=== PATIENT | male | born 1970 | race Caucasian/White ===

== ENCOUNTER 2021-05-27 20:22 | Inpatient (IN) | payer MEDICARE, MEDICAID, SELFPAY ==
--- NOTE | ~2021-05-27 | XR_ITS ---
EXAMINATION: XR CHEST CLINICAL INFORMATION: COPD COMPARISON: None TECHNIQUE: Frontal view of the chest was obtained. FINDINGS: Low lung volumes. Minimal opacities may well be chronic. No large area of infiltrate. The mediastinal contours are felt to be within normal limits. There is no effusion. No obvious failure. Mild cephalization of the vasculature. XR/XR chest 1V IMPRESSION: No acute finding. Low lung volumes. Mild cephalization of the vasculature may represent patient's baseline. No failure or convincing evidence for an acute infiltrate
--- NOTE | ~2021-05-27 | CT_ITS ---
EXAMINATION: CT HEAD WITHOUT CONTRAST CLINICAL INFORMATION: Altered mental status COMPARISON: None TECHNIQUE: Contiguous axial imaging was performed from the skull base to vertex without intravenous administration of contrast. This CT examination was performed using dose optimization techniques as appropriate, variously including the following: *Automated exposure control *Adjustment of mA and/or kV according to patient size (this includes techniques or standardized protocols for targeted exams where dose is matched to indication/reason for exam; i.e. extremities or head) *Use of iterative reconstruction technique DLP: 817 mGy-cm FINDINGS: Assessment is suboptimal in some regions due to motion artifact. There is no evidence of acute intracranial hemorrhage or territorial infarction. No abnormal mass effect or midline shift is seen. [place] to white matter differentiation is well preserved. No extra-axial fluid collections are identified. The ventricles are normal in size. There is no abnormal attenuation within the brain parenchyma. The osseous structures and soft tissues are normal. The mastoid air cells and visualized portions of the paranasal sinuses are well aerated. CT/CT head/brain wo con IMPRESSION: No acute intracranial pathology identified.
--- NOTE | ~2021-05-27 | CT_ITS ---
EXAMINATION: CT ANGIOGRAM OF THE CHEST WITH AND WITHOUT CONTRAST (CT PULMONARY ANGIOGRAM FOR PE) CLINICAL INFORMATION: Tachycardic, hypoxic. COMPARISON: None TECHNIQUE: Prior to contrast administration, noncontrast localization images were obtained. Subsequently, multidetector volumetric imaging was performed from the thoracic inlet to below the diaphragms following the administration of 80 mL Omnipaque 350 intravenous contrast. No contrast reaction reported. Sagittal, coronal, and MIP oblique sagittal reformatted images were obtained on the CT workstation, uploaded to PACS, and reviewed. This CT examination was performed using dose optimization techniques as appropriate, variously including the following: *Automated exposure control *Adjustment of mA and/or kV according to patient size (this includes techniques or standardized protocols for targeted exams where dose is matched to indication/reason for exam; i.e. extremities or head) *Use of iterative reconstruction technique Total exam dose-length product 418 mGy-cm FINDINGS: QUALITY OF STUDY/CONTRAST BOLUS: Satisfactory. PULMONARY ARTERIES: No central or segmental pulmonary emboli. THORACIC AORTA: No aneurysm or dissection. LUNG: There is centrilobular emphysematous changes with dependent bilateral upper lobe posterior segment atelectasis. There is bilateral lower lobe dependent atelectasis and/or infiltrates. PLEURA: Bilateral posterior pleural thickening and/or effusion is noted. MEDIASTINUM: The thyroid lobes are symmetrical and normal. The central trachea and the bronchi are widely patent. Heart size and the great vessels are normal caliber. No abnormal sized mediastinal or hilar lymph nodes seen. There is no pericardial effusion. No evidence of septal bowing or right heart strain. CHEST WALL/AXILLA: There are small shotty axillary lymph nodes seen. OSSEOUS STRUCTURES: No acute or suspicious osseous abnormality. UPPER ABDOMEN: Unremarkable. No reflux of contrast into the hepatic veins to suggest elevated right heart pressures. CT/CT angio chest PE protocol IMPRESSION: No evidence of PE. No evidence aortic dissection or aneurysm. There is bibasilar dependent atelectasis and/or infiltrate. There is dependent bilateral upper lobe posterior segment atelectasis. VTE: negative
[2021-05-27 20:26] VITALS: BP 116/70; PULSE 110; O2SAT 81
[2021-05-27 20:31] VITALS: BP 127/79; PULSE 98; RESP 24; TEMP 37.2; O2SAT 93; BMI 29.8
--- NOTE | 2021-05-27 21:11 | ECG_ITS ---
Test Reason : sob Blood Pressure : / mmHG Vent. Rate : 091 BPM Atrial Rate : 091 BPM P-R Int : 144 ms QRS Dur : 080 ms QT Int : 358 ms P-R-T Axes : 074 079 058 degrees QTc Int : 440 ms Normal sinus rhythm Normal ECG No previous ECGs available Referred By: Elizabeth Hull Electronically Signed By:BOBBY SEGURA MD
--- NOTE | 2021-05-27 21:15 | ED.AMS ---
HPI - Altered Mental Status General Chief Complaint: Altered Mental Status Stated Complaint: sob Time Seen by Provider: 05/27/21 20:55 Source: EMS Mode of arrival: EMS Limitations: altered mental status History of Present Illness HPI narrative: Patient is brought to emergency room by EMS. Patient is coming from [facility]. Seems that the patient was seen earlier today at [facility]. Seems that patient had been there from 14:00 and was there for several hours, according to report from EMS, the patient is oxygen dependent for COPD and per report it seems that patient was not on oxygen from the time he was picked up from the rehab until he was returned back. Also, seems that the patient received 2 mg Ativan prior to transport from [facility] to the rehab facility. Also, seems that the patient received Narcan approximately at 16:00. Patient is very somnolent and unable to give any history. Related Data Allergies Allergy/AdvReac Type Severity Reaction Status Date / Time No Known Allergies Allergy Verified 05/27/21 21:11 Review of Systems Review of Systems: e Yes Unobtainable due to mental status [facility] Past Medical History [facility] Narrative: At this time, unable to get any history from the patient due to mental status. Medical records have been requested, pending. Social History Social History Advance Directives: No Advance Directives Information Provided: Yes Physical Exam Vital Signs: Vital Signs: Last Vital Signs Temp 98.9 F 05/27/21 20:31 Pulse 107 H 05/28/21 00:59 Resp 20 05/28/21 00:59 BP 114/59 L 05/28/21 00:59 Pulse Ox 92 05/28/21 00:59 Oxygen Flow Rate 4 05/27/21 20:31 Body Mass Index 29.8 Const: Other: Appearance: Somnolent, wakes up to needle sticks as were obtaining labs Eyes: Pupils equal, pinpoint pupils bilaterally ENT: Pharynx normal. Neck: Normal inspection. Neck supple. No lymph nodes noted. No crepitus CVS: Normal heart rate and rhythm. Pulses normal. Normal S1 and S2 Respiratory: No respiratory distress. Patient's oxygen saturation dropped to 87-88% even on 4 L of oxygen. Lungs have decreased air movement, wheezing. Abdomen: Soft no rigidity, no distention Skin: Skin warm and dry. Extremities: No lower extremity edema. No Lacerations. No Rash Neuro: Very somnolent Course Course Course Narrative: Patient remains somnolent but does wake up. Without oxygen patient desaturates to the mid 80s. Patient's nurse tried calling the [place] [facility] came from. They do not know if the patient is oxygen dependent. When we asked patient, he keeps changing his answers. In the meantime, seems that patient was seen earlier today for COPD exacerbation at [place], patient was given azithromycin. We will go ahead and treat for COPD exacerbation, patient remains on 4 L of oxygen saturating 93%. Patient will be admitted. Sepsis not suspected. MDM - Altered Mental Status Lab Data Result diagrams: 05/27/21 21:28 05/27/21 21:28 Labs: Lab Results 05/27/21 05/27/21 05/27/21 Range/Units 21:24 21:28 21:28 WBC 11.2 H (4.8-10.8) X10*3/uL RBC 4.93 (4.60-5.80) X10*6/uL Hgb 15.6 (14.0-18.0) g/dl Hct 46.4 (42.0-52.0) % MCV 94.1 (80.0-98.0) fL MCH 31.6 (27.0-33.0) pg MCHC 33.6 (31.0-36.0) g/dl RDW 13.1 (11.0-16.0) % Plt Count 422 H (160-400) X10*3/uL MPV 8.3 L (9.4-12.4) fL Immature Gran % (Auto) 0.3 (0.0-0.4) % Neut % (Auto) 63.2 (45-73) % Lymph % (Auto) 25.1 (20-40) % Phillips % (Auto) 8.5 (2-11) % Eos % (Auto) 2.5 (0-4) % Baso % (Auto) 0.4 (0-2) % Lymph # (Auto) 2.8 (1.2-4.9) X10*3/uL Phillips # (Auto) 1.0 (0.1-1.2) X10*3/uL Eos # (Auto) 0.3 (0.0-0.4) X10*3/uL Baso # (Auto) 0.0 (0.0-0.2) X10*3/uL Abs Immat Gran (auto) 0.03 (0.00-0.03) X10*3/uL Absolute Neuts (auto) 7.1 (2.0-8.3) x10*3/uL Absolute Nucleated RBC 0.000 (0.0-0.012) X10*3/uL Nucleated RBC % (auto) 0.0 (0.0-0.2) /100WBC PT (9.9-13.0) SEC INR (0.9-1.1) VBG pH 7.35 (7.32-7.43) VBG pCO2 52 mmHg VBG pO2 101 mmHg VBG HCO3 29 H (22-26) mmol/L VBG O2 Saturation 99.0 % VBG Base Excess 3.1 mmol/L Sodium 140 (135-145) mmol/L Potassium 4.3 (3.3-5.1) mmol/L Chloride 104 (96-108) mmol/L Carbon Dioxide 29 (22-29) mmol/L Anion Gap 11 L (12-20) BUN 8 L (9-16) mg/dL Creatinine 0.73 (0.5-1.4) mg/dL Estim Creat Clear Calc 146.4 Estimated GFR > 60 Random Glucose 136 H (60-115) mg/dL Lactic Acid (0.5-2.0) mmol/L Calcium 9.3 (8.4-10.2) mg/dL Magnesium 2.1 (1.6-2.6) mg/dL Total Bilirubin 0.3 (0.0-1.0) mg/dL Direct Bilirubin 0.2 (0.0-0.5) mg/dL AST 9 (5-37) U/L ALT 13 (0-40) U/L Alkaline Phosphatase 72 (39-117) U/L Ammonia (13-55) umol/L Troponin I High Sens (<3.5-35.0) ng/L B-Natriuretic Peptide (<100) pg/mL Total Protein 6.6 (6.5-8.0) g/dL Albumin 4.1 (3.5-5.0) g/dL COVID-19 ([facility]) (Negative) COVID-19 Clin Com 11/17/21 11/17/21 11/17/21 Range/Units 21:28 21:28 21:28 WBC (4.8-10.8) X10*3/uL RBC (4.60-5.80) X10*6/uL Hgb (14.0-18.0) g/dl Hct (42.0-52.0) % MCV (80.0-98.0) fL MCH (27.0-33.0) pg MCHC (31.0-36.0) g/dl RDW (11.0-16.0) % Plt Count (160-400) X10*3/uL MPV (9.4-12.4) fL Immature Gran % (Auto) (0.0-0.4) % Neut % (Auto) (45-73) % Lymph % (Auto) (20-40) % Phillips % (Auto) (2-11) % Eos % (Auto) (0-4) % Baso % (Auto) (0-2) % Lymph # (Auto) (1.2-4.9) X10*3/uL Phillips # (Auto) (0.1-1.2) X10*3/uL Eos # (Auto) (0.0-0.4) X10*3/uL Baso # (Auto) (0.0-0.2) X10*3/uL Abs Immat Gran (auto) (0.00-0.03) X10*3/uL Absolute Neuts (auto) (2.0-8.3) x10*3/uL Absolute Nucleated RBC (0.0-0.012) X10*3/uL Nucleated RBC % (auto) (0.0-0.2) /100WBC PT 12.0 (9.9-13.0) SEC INR 1.1 (0.9-1.1) VBG pH (7.32-7.43) VBG pCO2 mmHg VBG pO2 mmHg VBG HCO3 (22-26) mmol/L VBG O2 Saturation % VBG Base Excess mmol/L Sodium (135-145) mmol/L Potassium (3.3-5.1) mmol/L Chloride (96-108) mmol/L Carbon Dioxide (22-29) mmol/L Anion Gap (12-20) BUN (9-16) mg/dL Creatinine (0.5-1.4) mg/dL Estim Creat Clear Calc Estimated GFR Random Glucose (60-115) mg/dL Lactic Acid 0.8 (0.5-2.0) mmol/L Calcium (8.4-10.2) mg/dL Magnesium (1.6-2.6) mg/dL Total Bilirubin (0.0-1.0) mg/dL Direct Bilirubin (0.0-0.5) mg/dL AST (5-37) U/L ALT (0-40) U/L Alkaline Phosphatase (39-117) U/L Ammonia 70 H (13-55) umol/L Troponin I High Sens (<3.5-35.0) ng/L B-Natriuretic Peptide (<100) pg/mL Total Protein (6.5-8.0) g/dL Albumin (3.5-5.0) g/dL COVID-19 ([facility]) (Negative) COVID-19 Clin Com 05/27/21 05/27/21 Range/Units 21:28 21:28 WBC (4.8-10.8) X10*3/uL RBC (4.60-5.80) X10*6/uL Hgb (14.0-18.0) g/dl Hct (42.0-52.0) % MCV (80.0-98.0) fL MCH (27.0-33.0) pg MCHC (31.0-36.0) g/dl RDW (11.0-16.0) % Plt Count (160-400) X10*3/uL MPV (9.4-12.4) fL Immature Gran % (Auto) (0.0-0.4) % Neut % (Auto) (45-73) % Lymph % (Auto) (20-40) % Phillips % (Auto) (2-11) % Eos % (Auto) (0-4) % Baso % (Auto) (0-2) % Lymph # (Auto) (1.2-4.9) X10*3/uL Phillips # (Auto) (0.1-1.2) X10*3/uL Eos # (Auto) (0.0-0.4) X10*3/uL Baso # (Auto) (0.0-0.2) X10*3/uL Abs Immat Gran (auto) (0.00-0.03) X10*3/uL Absolute Neuts (auto) (2.0-8.3) x10*3/uL Absolute Nucleated RBC (0.0-0.012) X10*3/uL Nucleated RBC % (auto) (0.0-0.2) /100WBC PT (9.9-13.0) SEC INR (0.9-1.1) VBG pH (7.32-7.43) VBG pCO2 mmHg VBG pO2 mmHg VBG HCO3 (22-26) mmol/L VBG O2 Saturation % VBG Base Excess mmol/L Sodium (135-145) mmol/L Potassium (3.3-5.1) mmol/L Chloride (96-108) mmol/L Carbon Dioxide (22-29) mmol/L Anion Gap (12-20) BUN (9-16) mg/dL Creatinine (0.5-1.4) mg/dL Estim Creat Clear Calc Estimated GFR Random Glucose (60-115) mg/dL Lactic Acid (0.5-2.0) mmol/L Calcium (8.4-10.2) mg/dL Magnesium (1.6-2.6) mg/dL Total Bilirubin (0.0-1.0) mg/dL Direct Bilirubin (0.0-0.5) mg/dL AST (5-37) U/L ALT (0-40) U/L Alkaline Phosphatase (39-117) U/L Ammonia (13-55) umol/L Troponin I High Sens < 3.5 (<3.5-35.0) ng/L B-Natriuretic Peptide < 10 (<100) pg/mL Total Protein (6.5-8.0) g/dL Albumin (3.5-5.0) g/dL COVID-19 ([facility]) Negative (Negative) COVID-19 Clin Com See Note Imaging Data Chest x-ray: Radiologist's impression: INDINGS: Low lung volumes. Minimal opacities may well be chronic. No large area of infiltrate. The mediastinal contours are felt to be within normal limits. There is no effusion. No obvious failure. Mild cephalization of the vasculature. XR/XR chest 1V IMPRESSION: No acute finding. Low lung volumes. Mild cephalization of the vasculature may represent patient's baseline. No failure or convincing evidence for an acute infiltrate ? ECG Data ECG #1: Attestation: I personally reviewed and interpreted this ECG as follows: (Sinus rhythm, heart rate 91, no ST segment depression or elevation, no T-wave inversion, QTC 440) Discharge Plan Discharge Clinical Impression: COPD with hypoxia Patient Disposition: Admitted As Inpatient
[2021-05-27 21:23] VITALS: PULSE 90; O2SAT 94
[2021-05-27] MEDS: Albuterol Sulfate (0.083%) 2.5 MG/3 ML VIAL.NEB 10 MG INHALE ×2 (21:23→22:16)
[2021-05-27 21:30] LABS: Venous Blood Gas Refer to POC result
[2021-05-27 21:32] LABS: VBG Base Excess 3.1 mmol/L; VBG HCO3 29 mmol/L (22-26); VBG pCO2 52 mmHg; VBG pH 7.35 (7.32-7.43); VBG pO2 101 mmHg
[2021-05-27 21:33] LABS: MANUAL DIFF FLAG NO
[2021-05-27 21:37] LABS: Basophils Percent Auto 0.4 % (0-2); Eosinophils Absolute Auto 0.3 X10*3/uL (0.0-0.4); Eosinophils Percent Auto 2.5 % (0-4); Hematocrit 46.4 % (42.0-52.0); Hemoglobin 15.6 g/dl (14.0-18.0); Imm Gran Abs Auto 0.03 X10*3/uL (0.00-0.03); Imm Gran Pct Auto 0.3 % (0.0-0.4); Lymphocytes Absolute Auto 2.8 X10*3/uL (1.2-4.9); Lymphocytes Percent Auto 25.1 % (20-40); Mean Corpuscular HGB Conc 33.6 g/dl (31.0-36.0); Mean Corpuscular Hemoglobin 31.6 pg (27.0-33.0); Mean Corpuscular Volume 94.1 fL (80.0-98.0); Mean Platelet Volume 8.3 fL (9.4-12.4); Monocytes Percent Auto 8.5 % (2-11); Neutrophils Absolute Auto 7.1 x10*3/uL (2.0-8.3); Neutrophils Percent Auto 63.2 % (45-73); Platelet Count 422 X10*3/uL (160-400); Red Blood Count 4.93 X10*6/uL (4.60-5.80); Red Cell Distribution Width 13.1 % (11.0-16.0); White Blood Count 11.2 X10*3/uL (4.8-10.8)
[2021-05-27 21:45] LABS: Ammonia 70 umol/L (13-55)
[2021-05-27] MEDS: Magnesium Sulfate/H2O 2 GM/50 ML PIGGYBACK IV (21:46)
[2021-05-27] MEDS: methylPREDNISolone Sod Succ 125 MG/2 ML VIAL IVPUSH (21:46)
[2021-05-27 21:47] LABS: Lactic Acid 0.8 mmol/L (0.5-2.0)
[2021-05-27 21:49] LABS: COVID-19 Test Negative (Negative)
[2021-05-27 21:51] LABS: INTERNATIONAL NORM RATIO 1.1 (0.9-1.1)
[2021-05-27 21:53] LABS: Alanine Aminotransferase 13 U/L (0-40); Albumin Level 4.1 g/dL (3.5-5.0); Alkaline Phosphatase 72 U/L (39-117); Anion Gap 11 (12-20); Aspartate Amino Transferase 9 U/L (5-37); Bilirubin Direct 0.2 mg/dL (0.0-0.5); Bilirubin Total 0.3 mg/dL (0.0-1.0); Blood Urea Nitrogen 8 mg/dL (9-16); Calcium 9.3 mg/dL (8.4-10.2); Carbon Dioxide 29 mmol/L (22-29); Chloride 104 mmol/L (96-108); Creatinine Clr Calc Pharmacy 146.4; Estimated Glomerular Filt Rate > 60; Glucose Random 136 mg/dL (60-115); Magnesium 2.1 mg/dL (1.6-2.6); Potassium 4.3 mmol/L (3.3-5.1); Sodium 140 mmol/L (135-145); Total Protein 6.6 g/dL (6.5-8.0)
[2021-05-27 21:56] LABS: B Type Natriuretic Peptide < 10 pg/mL (<100); Troponin-I High Sensitivity < 3.5 ng/L (<3.5-35.0)
[2021-05-27 22:17] VITALS: PULSE 93; O2SAT 89
[2021-05-28] VITALS (10 sets, daily range): BP systolic 112–142; BP diastolic 50–68; PULSE 92–123; RESP 16–34; O2SAT 92–95
[2021-05-28] MEDS: Naloxone HCl Nasal 4 MG SPRAY NOSTRILALT (01:23)
[2021-05-28 01:57] LABS: Appearance Urine CLEAR; Color Urine YELLOW; Glucose Urine UA >=1000 MG/DL (NEG); Leukocyte Esterase Urine NEG (NEG); Nitrite Urine NEG (NEG); PH 6.5 (5.0-8.0); Specific Gravity - Urine 1.015 (1.005-1.025); Urine Blood NEG (NEG); Urine Ketones 5 MG/DL (NEG); Urine Protein NEG (NEG-TRACE)
[2021-05-28] MEDS: cefTRIAXone sodium 1 GM in 0.9 % Sodium Chloride 50 ML IV (02:03)
[2021-05-28 02:08] LABS: Mucus Urine TRACE /LPF
[2021-05-28 02:09] LABS: Bacteria Urine TRACE /LPF; RBC Urine 0 /HPF (0); WBC Urine 0 /HPF (0-4)
[2021-05-28 02:19] LABS: Amphetamine Screen Urine Not Detected (Not Detect); Barbiturates, Urine Not Detected (Not Detect); Benzodiazepines Screen Urine Not Detected (Not Detect); Cannabinoid Screen Urine Not Detected (Not Detect); Cocaine Screen Urine Not Detected (Not Detect); Fentanyl, urine Not Detected (Not Detect); Opiate Screen Urine Not Detected (Not Detect); Phencyclidine Screen Urine Not Detected (Not Detect)
[2021-05-28] MEDS: Azithromycin 500 MG in 0.9 % Sodium Chloride 250 ML 125 MG IV (02:35)
[2021-05-28] MEDS: Nicotine 21 MG PATCH.TD24 TRANSDERMA ×3 (04:38→09:43)
[2021-05-28] MEDS: methylPREDNISolone Sod Succ 40 MG/ML VIAL IVPUSH (06:06)
[2021-05-28] MEDS: Enoxaparin Sodium 40 MG/0.4 ML SYRINGE SUBCUT (06:06)
--- NOTE | 2021-05-28 06:28 | P.HPHOSP_ITS ---
History of Present Illness Date of Service: 05/28/21 Chief Complaint: Shortness of breath This is a 50-year-old male with a reported history of COPD, as well as psych/behavioral disorder who presented to the hospital from psych care home for dyspnea and worsening shortness of breath. History is very difficult to obtain from patient as patient is very lethargic therefore history is obtained mostly from ED physician. According to the documentation that was sent with the patient, he was apparently seen at [facility] for shortness of breath, discharged the same day (today) and was sent back to his care home. According to documentation patient received Ativan x2 mg p.o. in the ambulance, on arrival to his care home patient noted to be more hypoxic, found to be 81% on room air, and sent back to [facility]. EMS gave patient Solu-Medrol as well as DuoNebs and placed on oxygen. Currently patient is very somnolent, arousable to painful stimuli, otherwise able to get much history from him. While I was examining him, we gave him Narcan, with no appropriate response. Unable to do review of system is patient is very somnolent Vitals are significant for a heart rate of 107, respiratory rate of 24, blood pressure 127/79, satting 93% on 4 L of oxygen. Labs are significant for WBC count of 11.2, otherwise unremarkable, pH of 7.35 with a CO2 of 52, ammonia of 70, labs otherwise unremarkable UA negative, head CT negative, Chest x-ray shows no acute findings but shows mild cephalization of the vasculature which may represent patient's baseline. Patient will be admitted for further management I am unable to obtain his past medical history, surgical history, social history or family history due to his mental/medical status Review of Systems Review of Systems: Yes Unobtainable due to mental condition and Unobtainable due to mental status PMFSH Social History Patient Tobacco Use Status: Current everyday Tobacco user Use of substances other than those prescribed or required for medical reasons: No Advance Directives: No Advance Directives Information Provided: Yes Meds Allergies Allergy/AdvReac Type Severity Reaction Status Date / Time No Known Allergies Allergy Verified 05/27/21 21:11 Active Medications: Current Medications Acetaminophen (Acetaminophen 325 Mg Tablet) 650 mg PO Q6H PRN PRN Reason: Pain, Mild (Pain Scale 1-3) Albuterol/Ipratropium (Albuterol/Iprat 2.5/0.5mg 3 Ml Ampul.Neb) 3 ml INHALE RQ4H PRN PRN Reason: Shortness of Breath/Wheezing Albuterol/Ipratropium (Albuterol/Iprat 2.5/0.5mg 3 Ml Ampul.Neb) 3 ml INHALE RQ4H WHILE AWAKE [facility] Docusate Sodium (Docusate Sodium 100 Mg Capsule) 100 mg PO DAILY PRN PRN Reason: Constipation Enoxaparin Sodium (Enoxaparin Sodium 40 Mg/0.4 Ml Syringe) 40 mg SUBCUT Q24H [facility] Last Admin: 05/28/21 06:06 Dose: 40 mg Documented by: Methylprednisolone Sodium Succinate (Methylprednisolone Sod Succ 40 Mg/Ml Vial) 40 mg IVPUSH Q12H [facility] Last Admin: 05/28/21 06:06 Dose: 40 mg Documented by: Nicotine (Nicotine 21 Mg Patch.Td24) 21 mg TRANSDERMA DAILY [facility] Last Admin: 05/28/21 04:38 Dose: 21 mg Documented by: Ondansetron HCl (Ondansetron Hcl 4 Mg/2 Ml Vial) 4 mg IVPUSH Q8H PRN PRN Reason: Nausea and Vomiting Sodium Chloride (0.9 % Sodium Chloride Flush 3 Ml Syringe) 3 ml IVFLUSH QSHIFT [facility] Physical Exam Vital Signs and Narrative: Vital Signs: Last Vital Signs Temp 98.9 F 05/27/21 20:31 Pulse 106 H 05/28/21 05:26 Resp 20 05/28/21 05:26 BP 113/55 L 05/28/21 05:26 Pulse Ox 93 05/28/21 03:20 Oxygen Flow Rate 4 05/27/21 20:31 Body Mass Index 29.8 Const: Other: Somnolent, arousable to painful stimuli only Eyes: General: appearance normal, both eyes and all related structures Resp: Other: Tachypneic Effort & Inspection: normal respiratory effort Auscultation: clear to auscultation bilaterally Cardio: Other: Tachycardic Rhythm: regular rhythm GI: Palpation (GI): Soft to palpation Auscultation: normal bowel sounds Skin: General skin exam: no rashes or lesions noted Neuro: Other: Unable to assess Extrem: General: Yes normal to inspection and Yes no pedal edema Results Labs CBC and Chem 7: 05/27/21 21:28 05/27/21 21:28 Labs: Laboratory Results - last 24 hr 05/27/21 05/27/21 05/27/21 21:24 21:28 21:28 MCV 94.1 MCH 31.6 MCHC 33.6 RDW 13.1 Plt Count 422 H MPV 8.3 L Immature Gran % (Auto) 0.3 Neut % (Auto) 63.2 Lymph % (Auto) 25.1 [place] % (Auto) 8.5 Eos % (Auto) 2.5 Baso % (Auto) 0.4 Lymph # (Auto) 2.8 [place] # (Auto) 1.0 Eos # (Auto) 0.3 Baso # (Auto) 0.0 Abs Immat Gran (auto) 0.03 Absolute Neuts (auto) 7.1 Absolute Nucleated RBC 0.000 Nucleated RBC % (auto) 0.0 PT INR VBG pH 7.35 VBG pCO2 52 VBG pO2 101 VBG HCO3 29 H VBG O2 Saturation 99.0 VBG Base Excess 3.1 Anion Gap 11 L Estim Creat Clear Calc 146.4 Estimated GFR > 60 Random Glucose 136 H Lactic Acid Calcium 9.3 Magnesium 2.1 Total Bilirubin 0.3 Direct Bilirubin 0.2 AST 9 ALT 13 Alkaline Phosphatase 72 Ammonia Troponin I High Sens B-Natriuretic Peptide Total Protein 6.6 Albumin 4.1 Urine Color Urine Appearance Urine pH Ur Specific [place] Urine Protein Urine Glucose (UA) Urine Ketones Urine Blood Urine Nitrite Ur Leukocyte Esterase Urine RBC Urine WBC Ur Squamous Epith Cells Urine Bacteria Urine Mucus Urine Yeast Urine Opiates Screen Urine Fentanyl Screen Ur Barbiturates Screen Ur Phencyclidine Scrn Ur Amphetamines Screen U Benzodiazepines Scrn Urine Cocaine Screen U Marijuana (THC) Screen COVID-19 ([facility]) COVID-19 Clin Com 05/27/21 05/27/21 05/27/21 21:28 21:28 21:28 MCV MCH MCHC RDW Plt Count MPV Immature Gran % (Auto) Neut % (Auto) Lymph % (Auto) [place] % (Auto) Eos % (Auto) Baso % (Auto) Lymph # (Auto) [place] # (Auto) Eos # (Auto) Baso # (Auto) Abs Immat Gran (auto) Absolute Neuts (auto) Absolute Nucleated RBC Nucleated RBC % (auto) PT 12.0 INR 1.1 VBG pH VBG pCO2 VBG pO2 VBG HCO3 VBG O2 Saturation VBG Base Excess Anion Gap Estim Creat Clear Calc Estimated GFR Random Glucose Lactic Acid 0.8 Calcium Magnesium Total Bilirubin Direct Bilirubin AST ALT Alkaline Phosphatase Ammonia 70 H Troponin I High Sens B-Natriuretic Peptide Total Protein Albumin Urine Color Urine Appearance Urine pH Ur Specific [place] Urine Protein Urine Glucose (UA) Urine Ketones Urine Blood Urine Nitrite Ur Leukocyte Esterase Urine RBC Urine WBC Ur Squamous Epith Cells Urine Bacteria Urine Mucus Urine Yeast Urine Opiates Screen Urine Fentanyl Screen Ur Barbiturates Screen Ur Phencyclidine Scrn Ur Amphetamines Screen U Benzodiazepines Scrn Urine Cocaine Screen U Marijuana (THC) Screen COVID-19 ([facility]) COVID-[employer] 05/27/21 05/27/21 05/28/21 21:28 21:28 01:38 MCV MCH MCHC RDW Plt Count MPV Immature Gran % (Auto) Neut % (Auto) Lymph % (Auto) [place] % (Auto) Eos % (Auto) Baso % (Auto) Lymph # (Auto) [place] # (Auto) Eos # (Auto) Baso # (Auto) Abs Immat Gran (auto) Absolute Neuts (auto) Absolute Nucleated RBC Nucleated RBC % (auto) PT INR VBG pH VBG pCO2 VBG pO2 VBG HCO3 VBG O2 Saturation VBG Base Excess Anion Gap Estim Creat Clear Calc Estimated GFR Random Glucose Lactic Acid Calcium Magnesium Total Bilirubin Direct Bilirubin AST ALT Alkaline Phosphatase Ammonia Troponin I High Sens < 3.5 B-Natriuretic Peptide < 10 Total Protein Albumin Urine Color Urine Appearance Urine pH Ur Specific [place] Urine Protein Urine Glucose (UA) Urine Ketones Urine Blood Urine Nitrite Ur Leukocyte Esterase Urine RBC Urine WBC Ur Squamous Epith Cells Urine Bacteria Urine Mucus Urine Yeast Urine Opiates Screen Not Detected Urine Fentanyl Screen Not Detected Ur Barbiturates Screen Not Detected Ur Phencyclidine Scrn Not Detected Ur Amphetamines Screen Not Detected U Benzodiazepines Scrn Not Detected Urine Cocaine Screen Not Detected U Marijuana (THC) Screen Not Detected COVID-19 ([facility]) Negative COVID-[employer] Com See Note 05/28/21 01:39 MCV MCH MCHC RDW Plt Count MPV Immature Gran % (Auto) Neut % (Auto) Lymph % (Auto) [place] % (Auto) Eos % (Auto) Baso % (Auto) Lymph # (Auto) [place] # (Auto) Eos # (Auto) Baso # (Auto) Abs Immat Gran (auto) Absolute Neuts (auto) Absolute Nucleated RBC Nucleated RBC % (auto) PT INR VBG pH VBG pCO2 VBG pO2 VBG HCO3 VBG O2 Saturation VBG Base Excess Anion Gap Estim Creat Clear Calc Estimated GFR Random Glucose Lactic Acid Calcium Magnesium Total Bilirubin Direct Bilirubin AST ALT Alkaline Phosphatase Ammonia Troponin I High Sens B-Natriuretic Peptide Total Protein Albumin Urine Color YELLOW Urine Appearance CLEAR Urine pH 6.5 Ur Specific [place] 1.015 Urine Protein NEG Urine Glucose (UA) >=1000 H Urine Ketones 5 Urine Blood NEG Urine Nitrite NEG Ur Leukocyte Esterase NEG Urine RBC 0 Urine WBC 0 Ur Squamous Epith Cells NONE Urine Bacteria TRACE Urine Mucus TRACE Urine Yeast 1+ Urine Opiates Screen Urine Fentanyl Screen Ur Barbiturates Screen Ur Phencyclidine Scrn Ur Amphetamines Screen U Benzodiazepines Scrn Urine Cocaine Screen U Marijuana (THC) Screen COVID-19 ([facility]) COVID-19 Clin Com Imaging Radiologist's Impressions: Impressions Chest X-Ray 05/27/21 21:12 IMPRESSION: No acute finding. Low lung volumes. Mild cephalization of the vasculature may represent patient's baseline. No failure or convincing evidence for an acute infiltrate Head CT 05/28/21 00:00 IMPRESSION: No acute intracranial pathology identified. Assessment and Plan (1) COPD with hypoxia: Status: Acute (2) Acute respiratory failure with hypoxia: Status: Acute (3) Tachypnea: Status: Acute (4) Tachycardia: Status: Acute (5) Encephalopathy: Status: Acute This is a 50-year-old male with past medical history of COPD who presents to the hospital with complaints of worsening shortness of breath found to have hypoxia # acute hypoxic respiratory failure - possibly secondary to COPD exacerbation, cannot rule out PE - patient will be started on IV Solu-Medrol, DuoNeb - no evidence of infiltrate or vascular congestion on chest x-ray - given his persistent tachycardia and tachypnea will rule out PE , , CT angiogram ordered - monitor respiratory status, continue oxygen as needed # COPD exacerbation - presumed given his hypoxia and his history - unable to assess for any increased cough or sputum production - will start him on IV Solu-Medrol, DuoNeb - once patient is more awake, we will re-evaluate # tachycardia and tachypnea - possibly secondary to acute hypoxic respiratory failure versus PE - will obtain CT angiogram PE protocol - monitor vitals # encephalopathy - possibly secondary to the Ativan - no evidence of infection, did not respond to Narcan, UDS negative - head CT negative - monitor respiratory status Home unable to continue any of his home medications as they have not been confirmed, consulted pharmacy for med reconciliation DVT prophylaxis: Lovenox Quality Stroke Does the patient have a stroke diagnosis?: No VTE Prior VTE?: No VTE Risk Level:: Medical - moderate - high VTE Device Contraindication: N/A - Device Ordered VTE Drug Contraindication: N/A - Med Ordered
--- NOTE | 2021-05-28 06:31 | PC.NURSE ---
I assumed care of the pt on his arrival to ED shortly after 1900. The pt arrived somnolent, responding only to sternal rub and then falling back to sleep immediately after. He presented with room air sat's in the mid 80's and a HR in the 110's, sinus tach. He has remained with a 1:1 throughout the night for constant supervision. As the night has progressed the pt has become less somnolent and more able to wake with less and less stimuli. At this time he is awake, alert and oriented x 3. He makes appropriate eye contact with RN and is verbally appropriate with staff. At times he is tearful, citing the of his father 12 years ago as the source for his grief. he denies SI/HI. He is taking PO fluids without difficulty. His respirations are spontaneous and non-labored, however his RR at this time is in the mid 20's and his room air sat's are 89-90%, as well as a HR persistently above 110 at rest. I notified hospitalist who requested pt have a CTA. Pt aware.
[2021-05-28 06:54] LABS: Basophils Percent Auto 0.1 % (0-2); Hematocrit 46.3 % (42.0-52.0); Imm Gran Abs Auto 0.11 X10*3/uL (0.00-0.03); Imm Gran Pct Auto 0.5 % (0.0-0.4); Lymphocytes Absolute Auto 0.4 X10*3/uL (1.2-4.9); MANUAL DIFF FLAG SCAN; Mean Corpuscular HGB Conc 32.4 g/dl (31.0-36.0); Mean Corpuscular Hemoglobin 31.1 pg (27.0-33.0); Mean Corpuscular Volume 96.1 fL (80.0-98.0); Mean Platelet Volume 8.5 fL (9.4-12.4); Monocytes Absolute Auto 0.4 X10*3/uL (0.1-1.2); Monocytes Percent Auto 1.9 % (2-11); Neutrophils Absolute Auto 19.2 x10*3/uL (2.0-8.3); Neutrophils Percent Auto 95.5 % (45-73); Platelet Count 445 X10*3/uL (160-400); Red Blood Count 4.82 X10*6/uL (4.60-5.80); Red Cell Distribution Width 13.2 % (11.0-16.0); SCAN SMEAR FLAG 1; White Blood Count 20.1 X10*3/uL (4.8-10.8)
[2021-05-28 07:15] LABS: Anion Gap 23 (12-20); Blood Urea Nitrogen 13 mg/dL (9-16); Calcium 9.4 mg/dL (8.4-10.2); Carbon Dioxide 17 mmol/L (22-29); Chloride 100 mmol/L (96-108); Creatinine Clr Calc Pharmacy 97.1; Estimated Glomerular Filt Rate > 60; Glucose Random 434 mg/dL (60-115); Potassium 5.2 mmol/L (3.3-5.1); Sodium 135 mmol/L (135-145)
[2021-05-28 07:24] LABS: SLIDE REVIEW VERIFIED
--- NOTE | 2021-05-28 07:24 | PC.NURSE ---
report taken from kelly obrien pt asleep on first contact, easily awoken to verbal stimuli, appears a&ox4, speaking in full clear sentences, calm and cooperative. given breakfast, tolerating po w/o issue. sitter at bedside for safety. wctm for dc needs.
[2021-05-28 08:14] LABS: ABG HCO3 17 mmol/L (22-26); ABG pCO2 33 mmHg (32-45); ABG pCO2 TC 33 mmHg (32-45); ABG pH 7.32 (7.35-7.45); ABG pH TC 7.33 (7.35-7.45); ABG pO2 119 mmHg (83-108); ABG pO2 TC 116 (83-108)
[2021-05-28] MEDS: Albuterol/Iprat 2.5/0.5MG 3 ML AMPUL.NEB INHALE ×3 (08:20→15:22)
--- NOTE | 2021-05-28 08:43 | PHA.MEDREC ---
Pharmacy Consult ? Medication Reconciliation Pharmacy has completed the medication reconciliation. There are no remarkable issues for provider's attention. I spoke with the patient and I contact the [facility] to double check the medications. Nadine Ashton, SimD
[2021-05-28] MEDS: risperiDONE 2 MG TABLET PO (09:43)
[2021-05-28] MEDS: Divalproex Sodium ER 500 MG TAB.ER.24H PO (10:06)
--- NOTE | 2021-05-28 10:37 | PM.EVENT ---
Event Note Date of Service: 05/28/21 Event Note: seen and examined this morning follow up for encephalopathy, hypoxia awake and alert, able to answer questions appropriately appears short of breath. he states shortness of breath for several weeks with associated cough productive of clear phlegm. denies fever or chills PE: This is a 50 year old male with history of COPD not on home o2, bipolar disorder, DM who presents from [facility] with hypoxia and encephalopathy acute hypoxic respiratory failure secondary to acute COPD exacerbation treat underlying COPD - given his persistent tachycardia and tachypnea will rule out PE, CT angiogram pending - continue supplemental o2 prn COPD exacerbation - continue IV Solu-Medrol, breathing treatments encephalopathy. Resolved. possibly secondary to the Ativan no evidence of infection, did not respond to Narcan, UDS negative head CT negative DM metformin on hold -SSI, POCs Mood continue depakote, risperidone dispo: back to [facility] when medically cleared dvt ppx - lovenox attending: dr. rubin
[2021-05-28] MEDS: iohexoL 350 MG/ML 100 ML INFUS..BTL IV (12:25)
[2021-05-28 13:16] LABS: Glucose, Whole Blood 343 mg/dL (60-115)
[2021-05-28] MEDS: Insulin Lispro 100 UNIT/ML 3 ML VIAL SUBCUT ×2 (13:20→21:27)
[2021-05-28 13:25] LABS: ABG Refer to POC result
[2021-05-28] MEDS: Lactated Ringers 1,000 ML 80 ML IVCONT (13:34)
[2021-05-28] MEDS: hydrOXYzine HCL 25 MG TABLET PO (13:42)
--- NOTE | 2021-05-28 14:13 | PC.NURSE ---
pt continually asking about when he is leaving or when he can speak to the doctor. pt educated about sec 12 status and process. provider aware. pt will have care team eval d/t coming from psych facility as pt on sec 12 status. refusing iv fluids at this time.
[2021-05-28 14:16] LABS: Anion Gap 15 (12-20); Blood Urea Nitrogen 12 mg/dL (9-16); Carbon Dioxide 25 mmol/L (22-29); Chloride 97 mmol/L (96-108); Creatinine Clr Calc Pharmacy 124.2; Estimated Glomerular Filt Rate > 60; Glucose Random 381 mg/dL (60-115); Potassium 4.7 mmol/L (3.3-5.1); Sodium 132 mmol/L (135-145)
[2021-05-28 14:32] LABS: Procalcitonin 0.05 ng/mL
--- NOTE | 2021-05-28 15:25 | PM.PSYCN ---
History of Present Illness Date of Service: 05/27/2021 Chief Complaint: COPD exacerbation Reason for Consult: medication, capacity Requesting physician: Soraida Tripathi Sources of Information: patient interviewed and chart reviewed HPI Narrative: 50 y.o. Who carries a dx of THADDEUS, bipolar disorder. He appears cognitively limited, although diagnosis of neurocognitive impairment unknown. Pt was brought to [facility] on 05/27/21 by EMS from [facility] due to exacerbation in COPD. Pt was admitted to [facility] for only a few hours after being seen by [facility] earlier in the day at [facility]. It is unclear if pt was admitted to [facility] on a conditional voluntary status or if he was on a section 12b (pt says he was sectioned), awaiting crisis eval (faxed release to obtain [facility] eval on 05/28 at 16:24). Pt is oxygen dependent for COPD and it appears he was not on oxygen from the time he was left home to go to [facility]. Pt received ativan 2 mg and azithryomycin at [facility] and was also given Narcan approximately at 16:00 due to somnolence. UA negative, head CT negative.? Per medical records, pt desaturates to the mid 80s without oxygen.? Patient's nurse tried calling the retirement where he came from. He is being medically admitted for treatment of COPD exacerbation, encephalopathy (resolved), hypoxia, remains on 4 L of oxygen saturating 93%.? Psych Medication regimen: on depakote 500 mg TID, risperdal 3 mg QHS and 2 mg QAM, vistaril 25 mg Q6H (prescribed by hospitalist), gabapentin 300 mg TID (for neuropathy but may help with mood stability, anxiety).? Consult requested for anxiolytic medication and capacity, as pt is requesting to leave AMA. I evaluated the pt this evening and upon interview he reports ?I came in to be treated for a medical thing, they wanted to put me in [facility] but i had a medical problem and they sent me over here.? Per pt, his anxiety is resolved because ?my anxiety was from my copd, i?m feeling better, i just want to go to my house.? Of note, pt is visibly anxious and agitated during interview. Per pt, ?they sectioned me because of problems with a lot of anxiousness and it was my copd.? Says he feels his medications are helping, does not want med changes. Says he took vistaril and ?its helping.? He denies depression. Denies SI/SIB/HI upon inquiry. Denies psychotic sx. Says his sleep and appetite are ?good,? energy is ?good,? and that he is able to take ?very good care? of himself and his apartment. Denies substance use. Pt continuously says ?I just want to go home,? he is tearful. Discussed that he is currently admitted medically but is to be moved to a bed up on [facility], however pt stated he would like to leave AMA because he feels ?better? and ?I have things to do tonight.? He is unable to explain rationale for this medical decision other than repeating he has ?things to do? and feels better. He became agitation, increased vocal volume, difficult to redirect.? Past Psychiatric History: SH: -Pt reports he lives alone in apt at [address] [place] [address] in [place] PPH: -Pt reports he has OP psych services through [facility], has outreach services through [facility]. Says he has his psych meds delivered by [facility]. No VISUAL COORDINATOR. Has [facility] worker, Rosemarie Bray. Medical Evaluation Reviewed: Yes Diagnostics Vital Signs (24Hr): Vital Signs - 24 hr 05/27/21 20:31 05/27/21 21:23 05/27/21 22:17 Temperature 98.9 F Pulse Rate 98 90 93 Respiratory Rate 24 H Blood Pressure 127/79 Pulse Oximetry 93 05/28/21 00:59 05/28/21 03:20 05/28/21 05:26 Temperature Pulse Rate 107 H 110 H 106 H Respiratory Rate 20 22 H 20 Blood Pressure 114/59 L 112/50 L 113/55 L Pulse Oximetry 92 93 05/28/21 07:24 05/28/21 08:21 05/28/21 09:29 Temperature Pulse Rate 100 102 H 96 Respiratory Rate 16 34 H Blood Pressure 116/64 Pulse Oximetry 94 95 05/28/21 12:08 Temperature Pulse Rate 98 Respiratory Rate Blood Pressure Pulse Oximetry Body Mass Index 29.8 Labs Results: 05/28/21 06:37 05/28/21 13:44 Labs: Laboratory Results - last 48 hr 05/27/21 05/27/21 05/27/21 21:24 21:28 21:28 WBC 11.2 H RBC 4.93 Hgb 15.6 Hct 46.4 MCV 94.1 MCH 31.6 MCHC 33.6 RDW 13.1 Plt Count 422 H MPV 8.3 L Immature Gran % (Auto) 0.3 Neut % (Auto) 63.2 Lymph % (Auto) 25.1 [place] % (Auto) 8.5 Eos % (Auto) 2.5 Baso % (Auto) 0.4 Lymph # (Auto) 2.8 [place] # (Auto) 1.0 Eos # (Auto) 0.3 Baso # (Auto) 0.0 Abs Immat Gran (auto) 0.03 Absolute Neuts (auto) 7.1 Absolute Nucleated RBC 0.000 Nucleated RBC % (auto) 0.0 Smear Tech's Comments PT INR O2 Saturation ABG pH at Pt Temp ABG pH (Temp Correct) ABG pCO2 at Pt Temp ABG pCO2 (Temp Corrct ABG pO2 at Pt Temp ABG pO2 (Temp Correct ABG HCO3 ABG Base Excess (Actual) VBG pH 7.35 VBG pCO2 52 VBG pO2 101 VBG HCO3 29 H VBG O2 Saturation 99.0 VBG Base Excess 3.1 Sodium 140 Potassium 4.3 Chloride 104 Carbon Dioxide 29 Anion Gap 11 L BUN 8 L Creatinine 0.73 Estim Creat Clear Calc 146.4 Estimated GFR > 60 POC Glucose Random Glucose 136 H Lactic Acid Calcium 9.3 Magnesium 2.1 Total Bilirubin 0.3 Direct Bilirubin 0.2 AST 9 ALT 13 Alkaline Phosphatase 72 Ammonia Troponin I High Sens B-Natriuretic Peptide Total Protein 6.6 Albumin 4.1 Procalcitonin Urine Color Urine Appearance Urine pH Ur Specific Guild Urine Protein Urine Glucose (UA) Urine Ketones Urine Blood Urine Nitrite Ur Leukocyte Esterase Urine RBC Urine WBC Ur Squamous Epith Cells Urine Bacteria Urine Mucus Urine Yeast Urine Opiates Screen Urine Fentanyl Screen Ur Barbiturates Screen Ur Phencyclidine Scrn Ur Amphetamines Screen U Benzodiazepines Scrn Urine Cocaine Screen U Marijuana (THC) Screen COVID-19 (CHRISTIAN) COVID-19 Clin Com 05/27/21 05/27/21 05/27/21 21:28 21:28 21:28 WBC RBC Hgb Hct MCV MCH MCHC RDW Plt Count MPV Immature Gran % (Auto) Neut % (Auto) Lymph % (Auto) [place] % (Auto) Eos % (Auto) Baso % (Auto) Lymph # (Auto) [place] # (Auto) Eos # (Auto) Baso # (Auto) Abs Immat Gran (auto) Absolute Neuts (auto) Absolute Nucleated RBC Nucleated RBC % (auto) Smear Tech's Comments PT 12.0 INR 1.1 O2 Saturation ABG pH at Pt Temp ABG pH (Temp Correct) ABG pCO2 at Pt Temp ABG pCO2 (Temp Corrct ABG pO2 at Pt Temp ABG pO2 (Temp Correct ABG HCO3 ABG Base Excess (Actual) VBG pH VBG pCO2 VBG pO2 VBG HCO3 VBG O2 Saturation VBG Base Excess Sodium Potassium Chloride Carbon Dioxide Anion Gap BUN Creatinine Estim Creat Clear Calc Estimated GFR POC Glucose Random Glucose Lactic Acid 0.8 Calcium Magnesium Total Bilirubin Direct Bilirubin AST ALT Alkaline Phosphatase Ammonia 70 H Troponin I High Sens B-Natriuretic Peptide Total Protein Albumin Procalcitonin Urine Color Urine Appearance Urine pH Ur Specific Guild Urine Protein Urine Glucose (UA) Urine Ketones Urine Blood Urine Nitrite Ur Leukocyte Esterase Urine RBC Urine WBC Ur Squamous Epith Cells Urine Bacteria Urine Mucus Urine Yeast Urine Opiates Screen Urine Fentanyl Screen Ur Barbiturates Screen Ur Phencyclidine Scrn Ur Amphetamines Screen U Benzodiazepines Scrn Urine Cocaine Screen U Marijuana (THC) Screen COVID-19 (CHRISTIAN) COVID-19 Clin Com 05/27/21 05/27/21 05/28/21 21:28 21:28 01:38 WBC RBC Hgb Hct MCV MCH MCHC RDW Plt Count MPV Immature Gran % (Auto) Neut % (Auto) Lymph % (Auto) [place] % (Auto) Eos % (Auto) Baso % (Auto) Lymph # (Auto) [place] # (Auto) Eos # (Auto) Baso # (Auto) Abs Immat Gran (auto) Absolute Neuts (auto) Absolute Nucleated RBC Nucleated RBC % (auto) Smear Tech's Comments PT INR O2 Saturation ABG pH at Pt Temp ABG pH (Temp Correct) ABG pCO2 at Pt Temp ABG pCO2 (Temp Corrct ABG pO2 at Pt Temp ABG pO2 (Temp Correct ABG HCO3 ABG Base Excess (Actual) VBG pH VBG pCO2 VBG pO2 VBG HCO3 VBG O2 Saturation VBG Base Excess Sodium Potassium Chloride Carbon Dioxide Anion Gap BUN Creatinine Estim Creat Clear Calc Estimated GFR POC Glucose Random Glucose Lactic Acid Calcium Magnesium Total Bilirubin Direct Bilirubin AST ALT Alkaline Phosphatase Ammonia Troponin I High Sens < 3.5 B-Natriuretic Peptide < 10 Total Protein Albumin Procalcitonin Urine Color Urine Appearance Urine pH Ur Specific Guild Urine Protein Urine Glucose (UA) Urine Ketones Urine Blood Urine Nitrite Ur Leukocyte Esterase Urine RBC Urine WBC Ur Squamous Epith Cells Urine Bacteria Urine Mucus Urine Yeast Urine Opiates Screen Not Detected Urine Fentanyl Screen Not Detected Ur Barbiturates Screen Not Detected Ur Phencyclidine Scrn Not Detected Ur Amphetamines Screen Not Detected U Benzodiazepines Scrn Not Detected Urine Cocaine Screen Not Detected U Marijuana (THC) Screen Not Detected COVID-19 (CHRISTIAN) Negative COVID-19 Clin Com See Note 05/28/21 05/28/21 05/28/21 01:39 06:37 06:37 WBC 20.1 H RBC 4.82 Hgb 15.0 Hct 46.3 MCV 96.1 MCH 31.1 MCHC 32.4 RDW 13.2 Plt Count 445 H MPV 8.5 L Immature Gran % (Auto) 0.5 H Neut % (Auto) 95.5 H Lymph % (Auto) 2.0 L [place] % (Auto) 1.9 L Eos % (Auto) 0.0 Baso % (Auto) 0.1 Lymph # (Auto) 0.4 L [place] # (Auto) 0.4 Eos # (Auto) 0.0 Baso # (Auto) 0.0 Abs Immat Gran (auto) 0.11 H Absolute Neuts (auto) 19.2 H Absolute Nucleated RBC 0.000 Nucleated RBC % (auto) 0.0 Smear Tech's Comments VERIFIED PT INR O2 Saturation ABG pH at Pt Temp ABG pH (Temp Correct) ABG pCO2 at Pt Temp ABG pCO2 (Temp Corrct ABG pO2 at Pt Temp ABG pO2 (Temp Correct ABG HCO3 ABG Base Excess (Actual) VBG pH VBG pCO2 VBG pO2 VBG HCO3 VBG O2 Saturation VBG Base Excess Sodium 135 Potassium 5.2 H D Chloride 100 Carbon Dioxide 17 L Anion Gap 23 H BUN 13 D Creatinine 1.10 Estim Creat Clear Calc 97.1 Estimated GFR > 60 POC Glucose Random Glucose 434 H* Lactic Acid Calcium 9.4 Magnesium Total Bilirubin Direct Bilirubin AST ALT Alkaline Phosphatase Ammonia Troponin I High Sens B-Natriuretic Peptide Total Protein Albumin Procalcitonin Urine Color YELLOW Urine Appearance CLEAR Urine pH 6.5 Ur Specific Guild 1.015 Urine Protein NEG Urine Glucose (UA) >=1000 H Urine Ketones 5 Urine Blood NEG Urine Nitrite NEG Ur Leukocyte Esterase NEG Urine RBC 0 Urine WBC 0 Ur Squamous Epith Cells NONE Urine Bacteria TRACE Urine Mucus TRACE Urine Yeast 1+ Urine Opiates Screen Urine Fentanyl Screen Ur Barbiturates Screen Ur Phencyclidine Scrn Ur Amphetamines Screen U Benzodiazepines Scrn Urine Cocaine Screen U Marijuana (THC) Screen COVID-19 (CHRISTIAN) COVID-19 Clin Com 05/28/21 05/28/21 05/28/21 08:08 13:12 13:44 WBC RBC Hgb Hct MCV MCH MCHC RDW Plt Count MPV Immature Gran % (Auto) Neut % (Auto) Lymph % (Auto) [place] % (Auto) Eos % (Auto) Baso % (Auto) Lymph # (Auto) [place] # (Auto) Eos # (Auto) Baso # (Auto) Abs Immat Gran (auto) Absolute Neuts (auto) Absolute Nucleated RBC Nucleated RBC % (auto) Smear Tech's Comments PT INR O2 Saturation 99.0 ABG pH at Pt Temp 7.32 L ABG pH (Temp Correct) 7.33 L ABG pCO2 at Pt Temp 33 ABG pCO2 (Temp Corrct 33 ABG pO2 at Pt Temp 119 H ABG pO2 (Temp Correct 116 H ABG HCO3 17 L ABG Base Excess (Actual) -7.0 VBG pH VBG pCO2 VBG pO2 VBG HCO3 VBG O2 Saturation VBG Base Excess Sodium 132 L Potassium 4.7 Chloride 97 Carbon Dioxide 25 Anion Gap 15 BUN 12 Creatinine 0.86 Estim Creat Clear Calc 124.2 Estimated GFR > 60 POC Glucose 343 H Random Glucose 381 H* Lactic Acid Calcium 9.0 Magnesium Total Bilirubin Direct Bilirubin AST ALT Alkaline Phosphatase Ammonia Troponin I High Sens B-Natriuretic Peptide Total Protein Albumin Procalcitonin Urine Color Urine Appearance Urine pH Ur Specific Guild Urine Protein Urine Glucose (UA) Urine Ketones Urine Blood Urine Nitrite Ur Leukocyte Esterase Urine RBC Urine WBC Ur Squamous Epith Cells Urine Bacteria Urine Mucus Urine Yeast Urine Opiates Screen Urine Fentanyl Screen Ur Barbiturates Screen Ur Phencyclidine Scrn Ur Amphetamines Screen U Benzodiazepines Scrn Urine Cocaine Screen U Marijuana (THC) Screen COVID-19 ([facility]STIAN) COVID-19 Clin Com 05/28/21 13:44 WBC RBC Hgb Hct MCV MCH MCHC RDW Plt Count MPV Immature Gran % (Auto) Neut % (Auto) Lymph % (Auto) [place] % (Auto) Eos % (Auto) Baso % (Auto) Lymph # (Auto) [place] # (Auto) Eos # (Auto) Baso # (Auto) Abs Immat Gran (auto) Absolute Neuts (auto) Absolute Nucleated RBC Nucleated RBC % (auto) Smear Tech's Comments PT INR O2 Saturation ABG pH at Pt Temp ABG pH (Temp Correct) ABG pCO2 at Pt Temp ABG pCO2 (Temp Corrct ABG pO2 at Pt Temp ABG pO2 (Temp Correct ABG HCO3 ABG Base Excess (Actual) VBG pH VBG pCO2 VBG pO2 VBG HCO3 VBG O2 Saturation VBG Base Excess Sodium Potassium Chloride Carbon Dioxide Anion Gap BUN Creatinine Estim Creat Clear Calc Estimated GFR POC Glucose Random Glucose Lactic Acid Calcium Magnesium Total Bilirubin Direct Bilirubin AST ALT Alkaline Phosphatase Ammonia Troponin I High Sens B-Natriuretic Peptide Total Protein Albumin Procalcitonin 0.05 Urine Color Urine Appearance Urine pH Ur Specific Guild Urine Protein Urine Glucose (UA) Urine Ketones Urine Blood Urine Nitrite Ur Leukocyte Esterase Urine RBC Urine WBC Ur Squamous Epith Cells Urine Bacteria Urine Mucus Urine Yeast Urine Opiates Screen Urine Fentanyl Screen Ur Barbiturates Screen Ur Phencyclidine Scrn Ur Amphetamines Screen U Benzodiazepines Scrn Urine Cocaine Screen U Marijuana (THC) Screen COVID-19 (CHRISTIAN) COVID-19 Clin Com Imaging Radiology Impressions: ITS Impressions Chest X-Ray 05/27/21 21:12 IMPRESSION: No acute finding. Low lung volumes. Mild cephalization of the vasculature may represent patient's baseline. No failure or convincing evidence for an acute infiltrate Head CT 05/28/21 00:00 IMPRESSION: No acute intracranial pathology identified. Chest CTA 05/28/21 12:27 IMPRESSION: No evidence of PE. No evidence aortic dissection or aneurysm. There is bibasilar dependent atelectasis and/or infiltrate. There is dependent bilateral upper lobe posterior segment atelectasis. VTE: negative Mental Status Exam Mental Status Exam Narrative: A&O except to situation, as pt states he was sectioned to [place] due to anxiety, however this would not warrant a section 12b. More collateral info is needed. In hospital attire, erythema of skin, mostly unkempt appearance although not malodorous. Good eye contact, inattentive. No Tics or Tremors. No abnormal involuntary movements. Agitated, anxious, difficult to engage in meaningful conversation. Speech is pressured, spontaneous with increased rate, interrupting, loud volume. No prolonged speech latency or dysarthria. Mood is ?better,? affect is anxious, agitated. Denies SI/SIB/HI upon inquiry. Denies A/VH or delusional thought content. Thoughts are coherent, organized. No known cognitive or memory impairment, need collateral info. Insight/ Judgment limited. Medications Medications Current Medications Acetaminophen (Acetaminophen 325 Mg Tablet) 650 mg PO Q6H PRN PRN Reason: Pain, Mild (Pain Scale 1-3) Albuterol/Ipratropium (Albuterol/Iprat 2.5/0.5mg 3 Ml Ampul.Neb) 3 ml INHALE RQ4H PRN PRN Reason: Shortness of Breath/Wheezing Albuterol/Ipratropium (Albuterol/Iprat 2.5/0.5mg 3 Ml Ampul.Neb) 3 ml INHALE RQ4H WHILE AWAKE [facility] Last Admin: 05/28/21 15:22 Dose: 3 ml Documented by: Dextrose (Dextrose 50 % 25 Gm/50 Ml Vial) 25 gm IVPUSH Q15M PRN; Protocol PRN Reason: per Hypoglycemia Standing Ord. Divalproex Sodium (Divalproex Sodium Er 500 Mg Tab.Er.24h) 500 mg PO TID [facility] Last Admin: 05/28/21 10:06 Dose: 500 mg Documented by: Docusate Sodium (Docusate Sodium 100 Mg Capsule) 100 mg PO DAILY PRN PRN Reason: Constipation Enoxaparin Sodium (Enoxaparin Sodium 40 Mg/0.4 Ml Syringe) 40 mg SUBCUT Q24H [facility] Last Admin: 05/28/21 06:06 Dose: 40 mg Documented by: Gabapentin (Gabapentin 300 Mg Capsule) 300 mg PO TID [facility] Glucose (Glucose Gel 15 Gm Gel..Gram.) 15 gm PO Q15M PRN; Protocol PRN Reason: per Hypoglycemia Standing Ord. Hydroxyzine HCl (Hydroxyzine Hcl 25 Mg Tablet) 25 mg PO Q6H PRN PRN Reason: Anxiety Last Admin: 05/28/21 13:42 Dose: 25 mg Documented by: Lactated Ringer's (Lr) 1,000 mls @ 80 mls/hr IVCONT .[id number] [facility] Stop: 05/29/21 00:59 Last Admin: 05/28/21 13:34 Dose: 80 mls/hr Documented by: Insulin Human Lispro (Insulin Lispro 100 Unit/Ml 3 Ml Vial) 0 unit SUBCUT QIDACHS [facility]; Protocol Last Admin: 05/28/21 13:20 Dose: 8 unit Documented by: Methylprednisolone Sodium Succinate (Methylprednisolone Sod Succ 40 Mg/Ml Vial) 40 mg IVPUSH Q12H [facility] Last Admin: 05/28/21 06:06 Dose: 40 mg Documented by: Nicotine (Nicotine 21 Mg Patch.Td24) 21 mg TRANSDERMA DAILY [facility] Last Admin: 05/28/21 09:43 Dose: 21 mg Documented by: Ondansetron HCl (Ondansetron Hcl 4 Mg/2 Ml Vial) 4 mg IVPUSH Q8H PRN PRN Reason: Nausea and Vomiting Risperidone (Risperidone 3 Mg Tablet) 3 mg PO BEDTIME [facility] Risperidone (Risperidone 2 Mg Tablet) 2 mg PO DAILY [facility] Last Admin: 05/28/21 09:43 Dose: 2 mg Documented by: Sodium Chloride (0.9 % Sodium Chloride Flush 3 Ml Syringe) 3 ml IVFLUSH QSHIFT [facility] Last Admin: 05/28/21 06:57 Dose: Not Given Documented by: Allergies Allergies Allergy/AdvReac Type Severity Reaction Status Date / Time No Known Allergies Allergy Verified 05/27/21 21:11 Assessment & Plan Assessment & Plan (1) Acute respiratory failure with hypoxia: Status: Acute Code(s): J96.01 - Acute respiratory failure with hypoxia (2) COPD with hypoxia: Status: Acute Code(s): J44.9 - Chronic obstructive pulmonary disease, unspecified; R09.02 - Hypoxemia (3) Bipolar 1 disorder: Status: Acute Code(s): F31.9 - Bipolar disorder, unspecified (4) THADDEUS (generalized anxiety disorder): Status: Acute Code(s): F41.1 - Generalized anxiety disorder Assessment and Plan: Plan: Will obtain [facility] crisis eval to determine what the criteria was for him being sectioned to [facility]. At this time, pt is not able to provide rationale for his decision making despite being provided education on his medical condition. He is unable to articulate risks of leaving AMA and appears limited in his cognition. At this time, pt is not meeting capacity for decision making. Cannot leave AMA. Will be seen by CARE team once medically clear for re-evaluation of need for psych IPLOC. Pt amenable to starting thorazine 50 mg Q6H PRN for agitation, anxiety as he reports past benefit on the medication. -Continue monitoring medically. Patient is not medically cleared. -Patient cannot leave AGAINST MEDICAL ADVICE. initial treatments ordered collateral history needed I have shared this with Soraida Tripathi Thank you for this consultation. If you have any questions or concerns, please do not hesitate to contact psychiatry service. I spent minutes with the patient and/or on the patient floor today, greater than?50% of which was spent counseling/coordinating care.
--- NOTE | 2021-05-28 15:54 | PC.NURSE ---
javan torres business development analyst at bedside for care team traci.
--- NOTE | 2021-05-28 18:07 | PC.NURSE ---
crisis speaking w pt again at bedside, pt becoming very agitated with dispo. provider and security aware of pt.
--- NOTE | 2021-05-28 18:15 | MHC.CM.PN ---
Pt is an admitted patient with bed assignment pending from [facility]. Pt has been demanding to go home since 3pm. Pt had a clinical assessment from [facility] prior to his D/C to [facility]. [facility] sent pt to ED at 0424 with COPD exacerbation. Pt is becoming agitated and yelling. Sol Ge psychology professor attempted to speak with patient about remaining in the hospital for medical care. Sol MELO is questioning pt capacity. [employer] called a second time by this CM to request clinical assessment; message left to return call. Sol MELO called [facility] and requested copy of [facility] assessment. CM will not meet with patient at this time due to agitation and psychiatric involvement with this patient. CM will continue to follow for d/c needs.
--- NOTE | 2021-05-28 20:25 | PC.NURSE ---
pt refusing to go back to [facility]. pt wants to go home where there is no home o2 and pt lives by himselft. pt denies s1 or h1. pt yelling out for diner and try was provided but not given to him. diner try given to pt he is happy but still wants to go home.
--- NOTE | 2021-05-28 20:56 | PC.NURSE ---
pt has been made a sec 12 by the hospitalist.
--- NOTE | 2021-05-28 21:14 | PC.NURSE ---
pt has been told that he is staying and will be a medical addmit and is s12. pt with anel and hospitalist with javan field care coordinator at bedside when we together address the pt need to stay in the hospital. pt lives by yourself and no home 02. pt now understands and states that he doesnt want to go home and wants to stay because his breathing and 02 needs cause his stress and is will to stay but refusing to go to a psy reddy.
[2021-05-28 21:22] LABS: Glucose, Whole Blood 342 mg/dL (60-115)
[2021-05-28] MEDS: Gabapentin 300 MG CAPSULE PO (21:27)
[2021-05-28] MEDS: risperiDONE 3 MG TABLET PO (21:27)
--- NOTE | 2021-05-28 21:30 | PC.NURSE ---
pt is more relaxed now that he has the plan of care reviewed with him. pt is even talking about stop smoking.
--- NOTE | 2021-05-28 21:33 | PC.NURSE ---
spoke with icu nnp and labetalol to be started to maintain sbp below 160/ bp at the time was 165/83 and that is ok and no need for treatment. will monitor bp. pt talking with and has a 5/10 headache, alert and oriented bp 178/68/114 will recheck in 15 min before starting treatment.
--- NOTE | 2021-05-28 21:42 | MHC.CM.PN ---
CM met with admitted patient with Jocelyn AYERS and Sol MELO. Pt teary, but cooperative and agreeable to admission for his COPD. Pt very concerned that after his COPD is better , he will be admitted to inhouse psych. Sol MELO assured patient that she did not believe he will need in-patient psych placement. No section 12 necessary. Pt making sound decisions at this time per Sol. Pt aware that CARE team will see him when he is medically cleared. Pt lives independently in an apartment. Has services through [facility], [facility] and [facility]. Therapist is Annelise Lindquist. PCP is Annelise Roche. Pt received J7J covid vaccine in 09/2020. Pt became very teary and emotionally upset when CM attempted to speak with him about HCP. States he has no one and his brother does want anything to do with him. Explained to pt that we do not need speak about the HCP at this time. Pt now on 2L on oxygen, secondary to O2sat of 88. Pt is concerned that he may need oxygen at home. Feels that his COPD is making him more anxious.Explained that he may have a resp. evaluation tomorrow to determine if he needs home oxygen. Assured pt that if he needs home oxygen, those arrangements will be made before he goes home. D/C plan is home if cleared by Care team when medically stable. Pt to continue community mental health services. CM to follow for d/c needs.
[2021-05-29] VITALS (8 sets, daily range): BP systolic 102–140; BP diastolic 55–78; PULSE 84–115; RESP 16–18; TEMP 36.6–37.2; O2SAT 90–94
[2021-05-29 02:11] LABS: Glucose, Whole Blood 211 mg/dL (60-115)
--- NOTE | 2021-05-29 02:15 | PC.NURSE ---
depakote not available in [facility] cook room supervisor called and will bring.
[2021-05-29] MEDS: Divalproex Sodium ER 500 MG TAB.ER.24H PO ×4 (02:25→20:57)
--- NOTE | 2021-05-29 03:47 | PC.NURSE ---
pt sleeping skin warm and dry, no s/s of resp distress. pt needs met, sitter present.
[2021-05-29] MEDS: Enoxaparin Sodium 40 MG/0.4 ML SYRINGE SUBCUT (04:46)
[2021-05-29] MEDS: methylPREDNISolone Sod Succ 40 MG/ML VIAL IVPUSH (04:46)
[2021-05-29 07:03] LABS: Hematocrit 44.2 % (42.0-52.0); Hemoglobin 14.3 g/dl (14.0-18.0); Mean Corpuscular HGB Conc 32.4 g/dl (31.0-36.0); Mean Corpuscular Hemoglobin 30.4 pg (27.0-33.0); Mean Corpuscular Volume 93.8 fL (80.0-98.0); Mean Platelet Volume 8.7 fL (9.4-12.4); Platelet Count 410 X10*3/uL (160-400); Red Blood Count 4.71 X10*6/uL (4.60-5.80); Red Cell Distribution Width 13.2 % (11.0-16.0); White Blood Count 18.1 X10*3/uL (4.8-10.8)
[2021-05-29 07:16] LABS: Alanine Aminotransferase 11 U/L (0-40); Albumin Level 3.8 g/dL (3.5-5.0); Alkaline Phosphatase 63 U/L (39-117); Anion Gap 15 (12-20); Aspartate Amino Transferase 8 U/L (5-37); Bilirubin Direct 0.2 mg/dL (0.0-0.5); Bilirubin Total 0.4 mg/dL (0.0-1.0); Blood Urea Nitrogen 11 mg/dL (9-16); Calcium 8.9 mg/dL (8.4-10.2); Carbon Dioxide 23 mmol/L (22-29); Chloride 102 mmol/L (96-108); Creatinine Clr Calc Pharmacy 133.6; Estimated Glomerular Filt Rate > 60; Glucose Random 308 mg/dL (60-115); Potassium 4.9 mmol/L (3.3-5.1); Sodium 135 mmol/L (135-145); Total Protein 6.3 g/dL (6.5-8.0)
[2021-05-29 07:25] LABS: Valproate 33.2 mcg/mL (50.0-100.0)
[2021-05-29] MEDS: Albuterol/Iprat 2.5/0.5MG 3 ML AMPUL.NEB INHALE ×3 (07:50→20:00)
--- NOTE | 2021-05-29 08:00 | P.CDIC_ITS ---
CDI Concurrent Query Documentation Clarification: PHYSICIAN'S DOCUMENTATION REQUEST Date of Query: 05/29/21 0801 Patient Name: Enrique Liriano Admit Date: 05/28/21 Dear Doctor, A review of the medical record indicates additional documentation may be needed. Please review below and update the documentation accordingly. Risk Factors/Clinical Indicators/Treatments Altered mental status. H&P: 05/28 - Encephalopathy possibly secondary to Ativan. No evidence of infection, head CT negative. PN: 05/28 - Encephalopathy, resolved patient did not respond to Narcan. Based on the above, please further specify, in the Progress Notes, the known or suspected type of the documented encephalopathy: Specifics: * Metabolic * Toxic * Toxic metabolic * Other (please specify) * Unable to determine Use of terms such as suspected, likely, concern for, or probable (associated with a specific diagnosis that is being evaluated, monitored, or treated as if it exists) are acceptable and can be coded in the inpatient setting, when documented at the time of discharge. Thank you, Brenda Peng [facility], CDIS Extension: [phone] Please use your independent medical judgment in providing your response. THIS QUERY IS PART OF THE PERMANENT MEDICAL RECORD
[2021-05-29 08:08] LABS: Glucose, Whole Blood 396 mg/dL (60-115)
[2021-05-29] MEDS: Nicotine 21 MG PATCH.TD24 TRANSDERMA (09:19)
[2021-05-29] MEDS: Insulin Lispro 100 UNIT/ML 3 ML VIAL SUBCUT ×5 (09:19→20:57)
[2021-05-29] MEDS: chlorproMAZINE HCl 25 MG TABLET 50 MG PO (09:20)
[2021-05-29] MEDS: hydrOXYzine HCL 50 MG TABLET PO ×2 (09:20→17:23)
[2021-05-29] MEDS: Gabapentin 300 MG CAPSULE PO ×3 (09:21→20:57)
[2021-05-29] MEDS: risperiDONE 2 MG TABLET PO (09:21)
--- NOTE | 2021-05-29 10:03 | HO.PM.IMPN ---
Subjective Subjective Date of Service: 05/29/21 Interval History: seen and examined this morning follow up for COPD exacerbation breathing better this morning wants to go home Review of Systems Review of Systems: Yes all other systems are reviewed and are negative Constitutional Constitutional: Denies chills and Denies fever(s) Cardiovascular Cardiovascular: Denies chest pain Gastrointestinal Gastrointestinal: Denies abdominal pain Physical Exam Vital Signs: Vital Signs: Last Vital Signs Temp 98 F 05/29/21 09:38 Pulse 115 H 05/29/21 09:38 Resp 18 05/29/21 09:38 BP 123/78 05/29/21 09:38 Pulse Ox 91 L 05/29/21 09:38 Oxygen Flow Rate 4 05/27/21 20:31 Body Mass Index 29.8 Const: General: comfortable, no acute distress and awake Nutritional Appearance: well nourished HENMT: Head: Yes normocephalic and Yes atraumatic Eyes: Sclerae: sclerae normal Resp: Other: scattered wheezing Effort & Inspection: normal respiratory effort and no respiratory distress Cardio: Rate: regular rate Rhythm: regular rhythm GI: Palpation (GI): Soft to palpation and nontender Neuro: Cranial nerves: Yes CN's II-XII intact bilaterally and Yes Bilaterally intact EOM present Extrem: Other: no leg edema Objective Data Active Medications Acetaminophen (Acetaminophen 325 Mg Tablet) 650 mg PO Q6H PRN PRN Reason: Pain, Mild (Pain Scale 1-3) Albuterol/Ipratropium (Albuterol/Iprat 2.5/0.5mg 3 Ml Ampul.Neb) 3 ml INHALE RQ4H PRN PRN Reason: Shortness of Breath/Wheezing Albuterol/Ipratropium (Albuterol/Iprat 2.5/0.5mg 3 Ml Ampul.Neb) 3 ml INHALE RQ4H WHILE AWAKE JUSTIN Last Admin: 05/29/21 07:50 Dose: 3 ml Documented by: VITA Chlorpromazine HCl (Chlorpromazine Hcl 25 Mg Tablet) 50 mg PO Q6H PRN PRN Reason: agitation, anxiety Last Admin: 05/29/21 09:20 Dose: 50 mg Documented by: PANCHITO Dextrose (Dextrose 50 % 25 Gm/50 Ml Vial) 25 gm IVPUSH Q15M PRN; Protocol PRN Reason: per Hypoglycemia Standing Ord. Divalproex Sodium (Divalproex Sodium Er 500 Mg Tab.Er.24h) 500 mg PO TID [facility] Last Admin: 05/29/21 02:25 Dose: 500 mg Documented by: DIONNA Docusate Sodium (Docusate Sodium 100 Mg Capsule) 100 mg PO DAILY PRN PRN Reason: Constipation Enoxaparin Sodium (Enoxaparin Sodium 40 Mg/0.4 Ml Syringe) 40 mg SUBCUT Q24H [facility] Last Admin: 05/29/21 04:46 Dose: 40 mg Documented by: DIONNA Gabapentin (Gabapentin 300 Mg Capsule) 300 mg PO TID [facility] Last Admin: 05/29/21 09:21 Dose: 300 mg Documented by: PANCHITO Glucose (Glucose Gel 15 Gm Gel..Gram.) 15 gm PO Q15M PRN; Protocol PRN Reason: per Hypoglycemia Standing Ord. Hydroxyzine HCl (Hydroxyzine Hcl 50 Mg Tablet) 50 mg PO Q6H PRN PRN Reason: Anxiety Last Admin: 05/29/21 09:20 Dose: 50 mg Documented by: PANCHITO Insulin Human Lispro (Insulin Lispro 100 Unit/Ml 3 Ml Vial) 0 unit SUBCUT QIDACHS [facility]; Protocol Last Admin: 05/29/21 09:19 Dose: 8 unit Documented by: PANCHITO Methylprednisolone Sodium Succinate (Methylprednisolone Sod Succ 40 Mg/Ml Vial) 40 mg IVPUSH Q12H [facility] Last Admin: 05/29/21 04:46 Dose: 40 mg Documented by: DIONNA Nicotine (Nicotine 21 Mg Patch.Td24) 21 mg TRANSDERMA DAILY [facility] Last Admin: 05/29/21 09:19 Dose: 21 mg Documented by: PANCHITO Ondansetron HCl (Ondansetron Hcl 4 Mg/2 Ml Vial) 4 mg IVPUSH Q8H PRN PRN Reason: Nausea and Vomiting Risperidone (Risperidone 3 Mg Tablet) 3 mg PO BEDTIME [facility] Last Admin: 05/28/21 21:27 Dose: 3 mg Documented by: DIONNA Risperidone (Risperidone 2 Mg Tablet) 2 mg PO DAILY [facility] Last Admin: 05/29/21 09:21 Dose: 2 mg Documented by: PANCHITO Sodium Chloride (0.9 % Sodium Chloride Flush 3 Ml Syringe) 3 ml IVFLUSH QSHIFT [facility] Last Admin: 05/29/21 09:49 Dose: Not Given Documented by: PANCHITO Non-Admin Reason: See Note Labs CBC & Chem 7: 05/29/21 06:44 05/29/21 06:44 Labs: Laboratory Results - last 24 hr 05/28/21 05/28/21 05/28/21 13:12 13:44 13:44 MCV MCH MCHC RDW Plt Count MPV Absolute Nucleated RBC Nucleated RBC % (auto) Anion Gap 15 Estim Creat Clear Calc 124.2 Estimated GFR > 60 POC Glucose 343 H Random Glucose 381 H* Calcium 9.0 Total Bilirubin Direct Bilirubin AST ALT Alkaline Phosphatase Total Protein Albumin Procalcitonin 0.05 Valproic Acid 05/28/21 05/29/21 05/29/21 21:17 02:06 06:44 MCV 93.8 MCH 30.4 MCHC 32.4 RDW 13.2 Plt Count 410 H MPV 8.7 L Absolute Nucleated RBC 0.000 Nucleated RBC % (auto) 0.0 Anion Gap Estim Creat Clear Calc Estimated GFR POC Glucose 342 H 211 H Random Glucose Calcium Total Bilirubin Direct Bilirubin AST ALT Alkaline Phosphatase Total Protein Albumin Procalcitonin Valproic Acid 05/29/21 05/29/21 05/29/21 06:44 06:44 08:04 MCV MCH MCHC RDW Plt Count MPV Absolute Nucleated RBC Nucleated RBC % (auto) Anion Gap 15 Estim Creat Clear Calc 133.6 Estimated GFR > 60 POC Glucose 396 H* Random Glucose 308 H Calcium 8.9 Total Bilirubin 0.4 Direct Bilirubin 0.2 AST 8 ALT 11 Alkaline Phosphatase 63 Total Protein 6.3 L Albumin 3.8 Procalcitonin Valproic Acid 33.2 L Microbiology Microbiology Results: Microbiology 05/27/21 21:38 Blood Culture - Preliminary Blood - Venous Prelim: GPC Gram Stain only 05/27/21 21:38 Blood Culture - Preliminary Blood - Venous No growth after 24 hours. Assessment and Plan (1) Encephalopathy: Status: Acute (2) COPD exacerbation: Status: Acute Assessment and Plan: This is a 50 year old male with history of COPD not on home o2, bipolar disorder, DM who presents from [facility] with hypoxia and encephalopathy acute hypoxic respiratory failure secondary to acute COPD exacerbation treat underlying COPD CTA negative for PE back on room air COPD exacerbation -transition to presnisone -continue prn breathing treatments toxic encephalopathy. Resolved. possibly secondary to the Ativan no evidence of infection, did not respond to Narcan, UDS negative head CT negative DM metformin on hold -SSI, POCs Mood continue depakote, risperidone dispo: medically cleared, needs BHN eval to determine need for inpatient pscy; seen by psych, does not have capacity at this time dvt ppx - lovenox attending: dr. rubin Quality Stroke Does the patient have a stroke diagnosis?: No VTE Prior VTE?: No VTE Risk Level:: Medical - moderate - high VTE Device Contraindication: N/A - Device Ordered VTE Drug Contraindication: N/A - Med Ordered
--- NOTE | 2021-05-29 11:40 | PC.NURSE ---
CALLED TO GIVE REPORT RN AT [facility], ASKED TO SPEAK WITH COVERING RN WHO IS DOING MED PASS UNIT SEC SAID SHE WOULD HAVE HER CALL WHEN DONE
[2021-05-29 11:47] LABS: Glucose, Whole Blood 389 mg/dL (60-115)
--- NOTE | 2021-05-29 14:30 | MHC.CM.PN ---
Addendum entered by Vikki Green 05/29/21 14:51: PATIENT'S CLINICAL DIRECTOR OF HEMOPHILIA IS WILEY BENTLEY ([phone]) PATIENT IS PART OF THE ACCS PROGRAM. (WILEY DROVE PATIENT TO [facility]) SHE IS NOW AWARE THAT [facility] IS WAITING FOR CARE TEAM EVALUATION FOR INPATIENT LEVEL OF CARE. WILEY IS STRONGLY ADVOCATING FOR INAPTEIT PSYCHIATRIC TREATMENT. WILEY AND PATIENT ALSO STATE THAT PATIENT DOES REQUIRE A HIGHER LEVEL OF CARE IN THE COMMUNITY WHICH IS BEING WORKED ON. PATIENT'S PCP IS RICK GOLDMAN. A [facility] CLIENT HEALTH CARE PROVIDER PLEASE KEEP WILEY UPDATED WITH PROGRESS Original Note: PATIENT REPORTS THAT RICK STRICKLAND IS IN [place] AND THE PHONE NUMBER CAN BE FOUND THROUGH [employer] IN [place] CALL TO [phone] LABORER WHARF, MENDY, GIVES RICK'S CONTACT NUMBER OF [phone]. ATTEMPTS TO LEAVE VOICEVTIL FOR RICK WERE UNSUCCESSFUL. CASE MANAGEMENT TO CONTINUE ATTEMPTS CALL TO [employer] ON-CALL SERVICE @ [phone] (SPOKE WITH LAURA) LAURA IS AWARE OF ATTEMPTS TO GATHER INFORMATION ON PATIENT COMMUNITY SERVICES AND ABILITY TO RETURN HOME SAFELY CASE MANAGEMENT TO UPDATE WITH A NOTE. CARE MICROSTRATEGY ARCHITECT IS AWARE THAT PATIENT IS MEDICALLY CLEARED.
[2021-05-29 16:31] LABS: Glucose, Whole Blood 451 mg/dL (60-115)
--- NOTE | 2021-05-29 17:34 | MHC.CARE ---
CARE team met with pt after being made aware that pt is medically cleared. Pt was sleeping when I entered the room. Pt states Can I go home now He states I have a therapist his name is Oliverio, I really like him and he doesn't think I need inpatient . Pt states I need to get home to make it to an AA meeting tomorrow, I have a lot of sobriety . Pt is calm and cooperative. He does not appear anxious however fixated on going home. Pt is able to provide me with the name of his [facility] worker, therapist and ACCS clinician. Pt reports his sleep and appetite have been good. Pt denies SI and states I went to [facility] by mistake, they had a mix up in the paperwork . Pt admits that he had been struggling in the community however reports but I am better now . Pt reports he had an medication change here in the hospital. T/W reached out to [facility] crisis to determine the rationale of pt going inpatient. I spoke with May who was the assessing clinician, and she reports that pt has been pretty dysregulated in the community. She sates he had three crisis evaluations in two days and they did not think a higher level of care was necessary however pt was unmanageable in the community and could not wait until Tuesday for his appointment with his med prescriber. May states pt will say anything to be heard . Pt was psychiatrically admitted for the goal of a medication change as pt was unable to wait until Tuesday to see his outpatient prescriber. At this time, it is my clinical opinion that pt does not require a higher level of care. T/W consulted with CARE steam bone press tender Jocelin Oro [facility] who is in agreement. T/W also consulted with Sol Ge NP who also supports disposition. Pt is well connected with his crisis team and outpatient supports and regularly reaches out for help. This information was passed on to Hospitalist Soraida Tripathi and pt is not medically cleared at this time. Pt will remain in the Hospital until medically stable and cleared. CARE team will be available as needed.
[2021-05-29 18:21] LABS: Glucose, Whole Blood 419 mg/dL (60-115)
[2021-05-29 20:42] LABS: Glucose, Whole Blood 315 mg/dL (60-115)
[2021-05-29] MEDS: risperiDONE 3 MG TABLET PO (20:57)
[2021-05-30] VITALS (11 sets, daily range): BP systolic 104–129; BP diastolic 64–84; PULSE 82–106; RESP 17–20; TEMP 36.1–37.2; O2SAT 88–98
[2021-05-30] MEDS: Albuterol/Iprat 2.5/0.5MG 3 ML AMPUL.NEB INHALE ×3 (08:11→19:43)
[2021-05-30 08:32] LABS: Glucose, Whole Blood 307 mg/dL (60-115)
[2021-05-30] MEDS: Nicotine 21 MG PATCH.TD24 TRANSDERMA (08:44)
[2021-05-30] MEDS: Divalproex Sodium ER 500 MG TAB.ER.24H PO ×3 (08:45→22:00)
[2021-05-30] MEDS: Gabapentin 300 MG CAPSULE PO ×3 (08:45→21:59)
[2021-05-30] MEDS: risperiDONE 2 MG TABLET PO (08:45)
[2021-05-30] MEDS: Insulin Lispro 100 UNIT/ML 3 ML VIAL SUBCUT ×6 (08:47→22:00)
[2021-05-30] MEDS: predniSONE 20 MG TABLET 40 MG PO (08:51)
--- NOTE | 2021-05-30 09:31 | P.PNIM_ITS ---
Subjective Subjective Date of Service: 05/30/21 <NIKKIE Nunes - Last Filed: 05/30/21 09:34> 06/06/21 <Tanvir Morales MD - Last Filed: 06/06/21 16:50> Interval History: seen and examined this morning follow up for COPD wants to go home; feels fine <NIKKIE Nunes - Last Filed: 05/30/21 09:34> Review of Systems Review of Systems: Yes all other systems are reviewed and are negative <NIKKIE Nunes - Last Filed: 05/30/21 09:34> Constitutional Constitutional: Denies chills and Denies fever(s) <NIKKIE Nunes - Last Filed: 05/30/21 09:34> Cardiovascular Cardiovascular: Denies chest pain <NIKKIE Nunes - Last Filed: 05/30/21 09:34> Respiratory Respiratory: Denies cough <NIKKIE Nunes - Last Filed: 05/30/21 09:34> Gastrointestinal Gastrointestinal: Denies abdominal pain <NIKKIE Nunes - Last Filed: 05/30/21 09:34> Physical Exam Vital Signs: Vital Signs: Last Vital Signs Temp 97.4 F 05/30/21 07:27 Pulse 84 05/30/21 08:11 Resp 20 05/30/21 07:27 BP 116/84 05/30/21 07:27 Pulse Ox 91 L 05/30/21 07:27 Oxygen Flow Rate 4 05/27/21 20:31 Body Mass Index 29.8 <NIKKIE Nunes - Last Filed: 05/30/21 09:34> Const: General: comfortable, no acute distress and awake <NIKKIE Nunes - Last Filed: 05/30/21 09:34> Nutritional Appearance: well nourished <NIKKIE Nunes Last Filed: 05/30/21 09:34> HENMT: Head: Yes normocephalic and Yes atraumatic <NIKKIE Nunes Last Filed: 05/30/21 09:34> Eyes: Sclerae: sclerae normal <NIKKIE Nunes - Last Filed: 05/30/21 09:34> Resp: Other: scattered wheezing <NIKKIE Nunes Last Filed: 05/30/21 09:34> Effort & Inspection: normal respiratory effort and no respiratory distress <NIKKIE Nunes - Last Filed: 05/30/21 09:34> Cardio: Rate: regular rate <NIKKIE Nunes Last Filed: 05/30/21 09:34> Rhythm: regular rhythm <NIKKIE Nunes Last Filed: 05/30/21 09:34> GI: Palpation (GI): Soft to palpation and nontender <NIKKIE Nunes - Last Filed: 05/30/21 09:34> Neuro: Cranial nerves: Yes CN's II-XII intact bilaterally and Yes Bilaterally intact EOM present <NIKKIE Nunes Last Filed: 05/30/21 09:34> Extrem: Other: no leg edema <NIKKIE Nunes Last Filed: 05/30/21 09:34> Objective Data Active Medications Acetaminophen (Acetaminophen 325 Mg Tablet) 650 mg PO Q6H PRN PRN Reason: Pain, Mild (Pain Scale 1-3) Albuterol/Ipratropium (Albuterol/Iprat 2.5/0.5mg 3 Ml Ampul.Neb) 3 ml INHALE RQ4H PRN PRN Reason: Shortness of Breath/Wheezing Albuterol/Ipratropium (Albuterol/Iprat 2.5/0.5mg 3 Ml Ampul.Neb) 3 ml INHALE RQ4H WHILE AWAKE [facility] Last Admin: 05/30/21 08:11 Dose: 3 ml Documented by: ISAURA Chlorpromazine HCl (Chlorpromazine Hcl 25 Mg Tablet) 50 mg PO Q6H PRN PRN Reason: agitation, anxiety Last Admin: 05/29/21 09:20 Dose: 50 mg Documented by: PANCHITO Dextrose (Dextrose 50 % 25 Gm/50 Ml Vial) 25 gm IVPUSH Q15M PRN; Protocol PRN Reason: per Hypoglycemia Standing Ord. Divalproex Sodium (Divalproex Sodium Er 500 Mg Tab.Er.24h) 500 mg PO TID [facility] Last Admin: 05/30/21 08:45 Dose: 500 mg Documented by: ZAIDA Docusate Sodium (Docusate Sodium 100 Mg Capsule) 100 mg PO DAILY PRN PRN Reason: Constipation Enoxaparin Sodium (Enoxaparin Sodium 40 Mg/0.4 Ml Syringe) 40 mg SUBCUT Q24H [facility] Last Admin: 05/30/21 05:43 Dose: Not Given Documented by: BIA Non-Admin Reason: Patient Refused Gabapentin (Gabapentin 300 Mg Capsule) 300 mg PO TID [facility] Last Admin: 05/30/21 08:45 Dose: 300 mg Documented by: ZAIDA Glucose (Glucose Gel 15 Gm Gel..Gram.) 15 gm PO Q15M PRN; Protocol PRN Reason: per Hypoglycemia Standing Ord. Hydroxyzine HCl (Hydroxyzine Hcl 50 Mg Tablet) 50 mg PO Q6H PRN PRN Reason: Anxiety Last Admin: 05/29/21 17:23 Dose: 50 mg Documented by: DONNY Insulin Human Lispro (Insulin Lispro 100 Unit/Ml 3 Ml Vial) 0 unit SUBCUT QIDACHS [facility]; Protocol Last Admin: 05/30/21 08:47 Dose: 8 unit Documented by: ZAIDA Nicotine (Nicotine 21 Mg Patch.Td24) 21 mg TRANSDERMA DAILY [facility] Last Admin: 05/30/21 08:44 Dose: 21 mg Documented by: ZAIDA Ondansetron HCl (Ondansetron Hcl 4 Mg/2 Ml Vial) 4 mg IVPUSH Q8H PRN PRN Reason: Nausea and Vomiting Prednisone (Prednisone 20 Mg Tablet) 40 mg PO DAILY [facility] Last Admin: 05/30/21 08:51 Dose: 40 mg Documented by: ZAIDA Risperidone (Risperidone 3 Mg Tablet) 3 mg PO BEDTIME [facility] Last Admin: 05/29/21 20:57 Dose: 3 mg Documented by: BIA Risperidone (Risperidone 2 Mg Tablet) 2 mg PO DAILY [facility] Last Admin: 05/30/21 08:45 Dose: 2 mg Documented by: ZAIDA Sodium Chloride (0.9 % Sodium Chloride Flush 3 Ml Syringe) 3 ml IVFLUSH QSHIFT [facility] Last Admin: 05/30/21 08:47 Dose: Not Given Documented by: ZAIDA Non-Admin Reason: No Access <NIKKIE Nunes - Last Filed: 05/30/21 09:34> Labs CBC & Chem 7: : 05/29/21 06:44 05/29/21 06:44 <NIKKIE Nunes - Last Filed: 05/30/21 09:34> Labs: Laboratory Results - last 24 hr 05/29/21 05/29/21 05/29/21 11:44 16:27 18:03 POC Glucose 389 H* 451 H* 419 H* 05/29/21 05/30/21 20:38 08:28 POC Glucose 315 H 307 H <NIKKIE Nunes - Last Filed: 05/30/21 09:34> Microbiology Microbiology Results: Microbiology 05/27/21 21:38 Blood Culture - Preliminary Blood - Venous Coag negative Staphylococcus 05/27/21 21:38 Blood Culture - Preliminary Blood - Venous Coag negative Staphylococcus <NIKKIE Nunes - Last Filed: 05/30/21 09:34> Assessment and Plan (1) THADDEUS (generalized anxiety disorder): Status: Acute <NIKKIE Nunes - Last Filed: 05/30/21 09:34> (2) COPD exacerbation: Status: Acute <NIKKIE Nunes - Last Filed: 05/30/21 09:34> Assessment and Plan: This is a 50 year old male with history of COPD not on home o2, bipolar disorder, DM who presents from [facility] with hypoxia and encephalopathy acute hypoxic respiratory failure secondary to acute COPD exacerbation treat underlying COPD CTA negative for PE back on room air COPD exacerbation -continue predsnisone -continue prn breathing treatments -home o2 eval done, pt qualifies for 3L continues oxygen toxic encephalopathy. Resolved. possibly secondary to the Ativan no evidence of infection, did not respond to Narcan, UDS negative head CT negative DM metformin on hold -SSI, POCs Mood continue depakote, risperidone dispo:seen by BHN yesterday, at that time he did not meet criteria for inpatient psych; will follow up with care team/bhn regarding discharge plan in light of new need for home o2 dvt ppx - lovenox attending: dr. bautista <NIKKIE Nunes - Last Filed: 05/30/21 09:34> This is a 50 year old male with history of COPD not on home o2, bipolar disorder, DM who presents from [facility] with hypoxia and encephalopathy acute hypoxic respiratory failure secondary to acute COPD exacerbation treat underlying COPD CTA negative for PE back on room air COPD exacerbation -continue predsnisone -continue prn breathing treatments -home o2 eval done, pt qualifies for 3L continues oxygen toxic encephalopathy. Resolved. possibly secondary to the Ativan no evidence of infection, did not respond to Narcan, UDS negative head CT negative DM metformin on hold -SSI, POCs Mood continue depakote, risperidone dispo:seen by N yesterday, at that time he did not meet criteria for inpatient psych; will follow up with care team/n regarding discharge plan in light of new need for home o2 dvt ppx - lovenox attending: dr. bautista I saw and examined patient and discussed findings with midlevel provider and i agree with the above <Tanvirelina Morales MD - Last Filed: 06/06/21 16:50> Quality Stroke Does the patient have a stroke diagnosis?: No <NIKKIE Nunes - Last Filed: 05/30/21 09:34> VTE Prior VTE?: No <NIKKIE Nunes - Last Filed: 05/30/21 09:34> VTE Risk Level:: Medical - moderate - high <NIKKIE Nunes - Last Filed: 05/30/21 09:34> VTE Device Contraindication: N/A - Device Ordered <NIKKIE Nunes Last Filed: 05/30/21 09:34> VTE Drug Contraindication: N/A - Med Ordered <NIKKIE Nunes - Last Filed: 05/30/21 09:34>
--- NOTE | 2021-05-30 10:04 | MHC.CARE ---
CARE Team spoke to weekend ACCS staff member, Rebecca [phone]. She reported that patient?s team has concerns about him being discharged home for several reasons?they believe he is too unstable given his presentation prior to admission to [facility], there are questions about whether he has psychiatric medications here, at [facility] or at home (he does take his own from prepackaged at home), given that it is the weekend no staff available to offer support, if he needs oxygen at home patient would not be able to manage that independently. [facility] night supervisor suggested [facility] (respite). Call to [facility], they will not take patient due to his level of decompensation over the last week they believe he is not ready for step down. CARE Team will continue to work on disposition.
[2021-05-30] MEDS: hydrOXYzine HCL 50 MG TABLET PO (10:16)
--- NOTE | 2021-05-30 11:09 | MHC.CM.PN ---
CM DISCUSSED PT'S CASE W/HOSPITALIST THIS AM AND LATER W/HONEY FROM CARE TEAM, HONEY HAS BEEN IN CONTACT W/PT'S OUTSIDE PROVIDER AND PT IS UNABLE TO D/C SAFELY AT HOME D/T NEW O2 AND DECOMPENSATION, HONEY IS WORKING ON PTS DISPO AND CM WILL CONT TO FOLLOW D/C NEEDS.
[2021-05-30 11:30] LABS: Glucose, Whole Blood 379 mg/dL (60-115)
--- NOTE | 2021-05-30 13:08 | MHC.CM.PN ---
Addendum entered by Lourdes Rutherford RN 05/30/21 16:02: CM WILL FOLLOW-UP W/ACCS CLINICIAN IN AM. Addendum entered by Lourdes Rutherford RN 05/30/21 15:55: PER PSYCH PT UNABLE TO D/C UNTIL SAFE D/C PLAN IS SET UP, CM MET W/PT AND PT IS AGREEABLE TO STAY ANOTHER NIGHT WHILE CM WORKS ON D/C PLAN, [facility] IS WILLING TO WEAVING INSPECTOR PREDNISONE FOR PT, [facility] STAFF WILL WEAVING INSPECTOR BELONGINGS FOR PT, TRANSPORT TO BE ARRANGED BY CM IN AM, PT WILL NEED AMBULANCE TRANSPORT. Original Note: PT WAS GOING TO D/C HOME W/[facility] HOWEVER PT HAS SEVERAL BARRIERS D/T DEVELOPMENTAL DELAYS AND LIVING ALONE, PT UNABLE TO CALL FOR NEW O2 AND MANAGE O2 AT HOME, PT UNABLE TO GET PREDNISONE FROM PHARMACY INDEPENDENTLY, PT'S BELONGINGS INCLUDING KEYS ARE AT [employer], CM HAS CALLED [facility] ON 5N/5S MULTIPLE TIMES W/NO ANSWER. CM HAS ALSO SPOKE W/PT'S ACCS CLINICIAN CHRISTIAN AT 11:33AM AND APPROX 12:30PM [phone] TO DISCUSS PT'S NEEDS AND PLAN, CHRISTIAN REPORTS THERE ARE NO NURSES OR STAFF TO ASSIST PT OVER W/E AND NO WAY TO KNOW IF PT'S REGULAR MEDS WERE DELIVERED THIS WEEK, MEDS ARE TYPICALLY DELIVERED THURS/FRI TO PT'S APT HOWEVER PT WAS INPT AND LIVES ALONE. CM MET W/CARE TEAM AND HOSPITALIST WELL TO DETERMINE IF DCP IS SAFE AND HOSPITALIST WILL RECONSULT PSYCH FOR COMPETENCY D/T PT'S INABILITY TO FOLLOW MEDICAL NEEDS. CM WILL CONT TO CONTACT [employer] AND FOLLOW D/C NEEDS.
[2021-05-30] MEDS: chlorproMAZINE HCl 25 MG TABLET 50 MG PO (13:27)
[2021-05-30 16:05] LABS: Glucose, Whole Blood 409 mg/dL (60-115)
[2021-05-30] MEDS: glipiZIDE XL 5 MG TAB.ER.24 PO (16:43)
[2021-05-30 19:22] LABS: Estimated Average Glucose 269 mg/dL
[2021-05-30 20:10] LABS: Glucose, Whole Blood 294 mg/dL (60-115)
[2021-05-30] MEDS: metFORMIN HCl ER 500 MG TAB.ER.24H 1000 MG PO (21:59)
[2021-05-30] MEDS: risperiDONE 3 MG TABLET PO (21:59)
[2021-05-31 04:00] VITALS: BP 95/83; PULSE 101; RESP 20; TEMP 37.1; O2SAT 90
[2021-05-31] MEDS: Enoxaparin Sodium 40 MG/0.4 ML SYRINGE SUBCUT (04:40)
[2021-05-31 07:06] VITALS: BP 124/62; PULSE 90; RESP 20; TEMP 36.5; O2SAT 92
[2021-05-31] MEDS: chlorproMAZINE HCl 25 MG TABLET 50 MG PO (07:33)
[2021-05-31] MEDS: Insulin Lispro 100 UNIT/ML 3 ML VIAL SUBCUT ×2 (07:33)
[2021-05-31] MEDS: Divalproex Sodium ER 500 MG TAB.ER.24H PO (07:34)
[2021-05-31] MEDS: risperiDONE 2 MG TABLET PO (07:34)
[2021-05-31] MEDS: metFORMIN HCl ER 500 MG TAB.ER.24H 1000 MG PO (07:34)
[2021-05-31] MEDS: glipiZIDE XL 5 MG TAB.ER.24 PO (07:35)
[2021-05-31] MEDS: Gabapentin 300 MG CAPSULE PO (07:35)
[2021-05-31] MEDS: predniSONE 20 MG TABLET PO (07:35)
[2021-05-31 07:46] LABS: Glucose, Whole Blood 273 mg/dL (60-115)
[2021-05-31 08:10] VITALS: PULSE 114; O2SAT 89
--- NOTE | 2021-05-31 09:10 | MHC.CM.PN ---
Addendum entered by Lourdes Rutherford RN 05/31/21 17:43: CM RECEIVED LATE MESSAGE FROM [facility] SAYING THEY CAN NOT [employer] REPAIRER PT'S MEDS, CM CONTACTED TREY FROM ACCS TO LET HIM KNOWPT'S MEDS WILL NEED TO BE PICKED UP AT TIME OF THIS NOTE. Original Note: IMM 05/31/21, PT DISCHARGING HOME W/NEW [facility] W/ACTION FOR TRANSPORT AT 11AM, CM CONTACTED PT'S GPS FIELD DATA COLLECTOR ACCS CLINICIAN TREY AT 9:05AM [phone] AND HE IS AWARE AND AGREEABLE OF PLAN AND THAT PT IS NO LONGER QUALIFYING FOR HOME O2. TREY REPORTED THAT PT SELF-PRESENTS TO ED, CRISIS AND CALLS ON-CALL CLINICIAN MULTIPLE TIMES A DAY AND THIS HAS BEEN GOING ON FOR SOME TIME.
--- NOTE | 2021-05-31 09:31 | W.MHC.F2F ---
Service Date Service Date: 05/31/21 Encounter Date of encounter: 05/31/21 Reasons for Services Reason for prison: diabetic teaching (uncontrolled diabetes) and medication management MD Overseeing Care: Krysta Roche Homebound: Leaving the home is medically contraindicated at this time without the asist of a device and/or another person due th the listed conditions above and below. Reason homebound: other Certification: Based on the above findings, I certify that this patient is confined to the home and needs intermittent prison care, physical therapy and/or speech therapy, or continues to need occupational therapy. The patient is under my care, and I have initiated the establishment of the plan of care. The patient will be followed by a physician who will periodically review the plan of care.
--- NOTE | 2021-05-31 09:34 | PM.DS ---
DS: Providers Provider Date of Service: 05/31/21 Date of admission: 05/28/21 04:24 Date of discharge: 05/31/21 Primary care physician: Unknown Physician Consults: 05/28/21 14:14 Consult to Care Team Routine Comment: Reason for consultation: admit from [facility], anxiety 05/28/21 14:36 Consult to Psychiatry Routine Consulting Provider: Psych Covering Reason for consultation: anxiety; from [facility] inpatient [facility] 05/29/21 08:16 Consult to Crisis Stat Reason for consultation: medically cleared; ?need for inpatient psych Has provider been notified: No 05/30/21 12:35 Consult to Psychiatry Routine Consulting Provider: Psych Covering Reason for consultation: competency eval: can he leave AMA? Has provider been notified: No Attending physician on discharge: Ralph Salas Discharging clinician: Soraida Tripathi DS: Diagnosis Discharge Diagnosis (1) THADDEUS (generalized anxiety disorder): Status: Acute (2) COPD exacerbation: Status: Acute (3) Uncontrolled diabetes mellitus: Status: Acute DS: Summary Hospital Course Hospital Course: from h&P on day of admission This is a 50-year-old male with a reported history of COPD, as well as psych/behavioral disorder who presented to the hospital from psych skilled nursing for dyspnea and worsening shortness of breath.? History is very difficult to obtain from patient as patient is very lethargic therefore history is obtained mostly from ED physician.? According to the documentation that was sent with the patient, he was apparently seen at [facility] for shortness of breath, discharged the same day (today)? and was sent back to his skilled nursing.? According to documentation patient received Ativan x2 mg p.o. in the ambulance, on arrival to his skilled nursing patient noted to be more hypoxic, found to be 81% on room air, and sent back to [facility].? EMS gave patient Solu-Medrol as well as DuoNebs and placed on oxygen. Currently patient is very somnolent, arousable to painful stimuli, otherwise able to get much history from him.? While I was examining him, we gave him Narcan, with no appropriate response. Unable to do review of system is patient is very somnolent Vitals are significant for a heart rate of 107, respiratory rate of 24, blood pressure 127/79, satting 93% on 4 L of oxygen. Labs are significant for WBC count of 11.2, otherwise unremarkable, pH of 7.35 with a CO2 of 52, ammonia of 70, labs otherwise unremarkable UA negative, head CT negative, Chest x-ray shows no acute findings but shows mild cephalization of the vasculature which may represent patient's baseline. The patient was admitted due to hypoxic respiratory failure as well as encephalopathy. He underwent CTA of the chest which was unremarkable. He was noted to be wheezing was started on steroids. He was treated for acute COPD exacerbation with systemic steroids and breathing treatments. He initially had home oxygen evaluation which qualified him for supplemental oxygen. This was repeated on the day of discharge and he no longer qualifies for oxygen. He will be discharged home with short burst of prednisone. He should call to schedule follow-up appointment with his PCP for close monitoring. Initially the patient was encephalopathic and only responding to painful stimuli. This may have been secondary to Ativan he received prior to transport. There was no evidence of infection, he did not respond to Narcan, tox screen was negative, head CT was negative. By the morning after admission he was back to his baseline mental status. His course was complicated by anxiety. He was evaluated by psych and due to his limited cognitive abilities who was deemed that he could not make a medical decision to leave against medical advice. He was initially transferred for [facility] inpatient psychiatric unit where he was briefly treated for anxiety. He was seen by N/care team and was deemed not to be candidate for further inpatient psychiatric care. He has numerous resources in the community he should follow up with his outpatient provider. DM. Diabetes was noticed to be uncontrolled, with hemoglobin A1c of 11.0. His dose of metformin was increased to 1000 mg b.i.d. and glipizide XL was added. He should monitor blood sugar closely adhere to strict diabetic diet. He should call to schedule follow-up appointment with PCP for close monitoring. He is being discharged home with visiting nurses to assist with Diabetes Education medication management. Status at Discharge Functional status at discharge: independent ambulation Time Spent with Patient Time attestation: Total time spent providing and/or coordinating discharge services: Discharge coordination time: Greater than 30 minutes Quality: Stroke Does the patient have a stroke diagnosis?: No Physical Exam Vital Signs: Vital Signs: Last Vital Signs Temp 97.7 F 05/31/21 07:06 Pulse 90 05/31/21 07:06 Resp 20 05/31/21 07:06 BP 124/62 05/31/21 07:06 Pulse Ox 92 05/31/21 07:06 Oxygen Flow Rate 4 05/27/21 20:31 Body Mass Index 29.8 Const: Nutritional Appearance: well nourished HENMT: Head: Yes normocephalic and Yes atraumatic Eyes: Sclerae: sclerae normal Resp: Effort & Inspection: normal respiratory effort and no respiratory distress Cardio: Rate: regular rate Rhythm: regular rhythm GI: Palpation (GI): Soft to palpation and nontender Neuro: Cranial nerves: Yes CN's II-XII intact bilaterally and Yes Bilaterally intact EOM present DS: Data Data Completed and Pending Labs on day of discharge: Laboratory Results - last 24 hr 05/29/21 05/30/21 05/30/21 06:44 11:26 16:01 POC Glucose 379 H* 409 H* Estimat Average Glucose 269 Hemoglobin A1c % 11.0 05/30/21 05/31/21 20:07 07:08 POC Glucose 294 H 273 H Estimat Average Glucose Hemoglobin A1c % Discharge Plan Discharge Patient Disposition: Home Health Service Discharge Diagnosis: acute COPD exacerbation acute respiratory failure with hypoxia uncontrolled diabetes Referrals: [facility] [Outside] - 1 Day (VISITING NURSE WILL SEE YOU TOMORROW, TuesdayJUNE 01. THEY WILL PUBLISHING EDITOR YOUR PRESCRIPTION FOR PREDNISONE. ) Physician,Unknown J [Primary Care Provider] - 1 Week Discharge Medications: New metformin 1,000 mg tablet 1,000 mg PO BID 30 Days Qty: 60 RF: 0 prednisone 20 mg tablet 20 mg PO DAILY 5 Days Qty: 5 RF: 0 glipizide 5 mg tablet extended release 24hr 5 mg PO DAILY 30 Days Qty: 30 RF: 0 Continued risperidone 3 mg tablet 3 mg PO BEDTIME RF: 0 risperidone 2 mg tablet 2 mg PO DAILY RF: 0 divalproex 500 mg tablet extended release 24 hr 500 mg PO TID RF: 0 nicotine 21 mg/24 hr patch 24 hour 21 mg topical DAILY RF: 0 gabapentin 300 mg capsule 300 mg PO TID RF: 0 albuterol sulfate [Ventolin HFA] 90 mcg/actuation HFA aerosol inhaler 2 puff inhalation Q4H PRN (Reason: Wheezing) RF: 0 Discontinued metformin 500 mg tablet extended release 24 hr 500 mg PO BID RF: 0 Discharge Orders: Discharge Order (Routine); Ordered 05/31/21 Ordered By: Soraida Tripathi Diet: diabetic diet Activity on Discharge: As tolerated Stand Alone Forms: Patient Portal Discharge page Care Plan Goals: see below Health Concerns: COPD exacerbation anxiety uncontrolled diabetes Plan of Treatment: take entire course of prednisone call to schedule a follow up appointment with your PCP return to the ED if you are feeling short of breath your blood sugars have been elevated, so some of your diabetes medications have been adjusted. recommend strict diabetic diet and close blood sugar monitoring Assessment: see discharge summary
== END 2021-05-31 10:30 | disposition home health service (06) | DRG 190 ==
LOC: HO.ED 05-28 01:54 → HO.EDOVER 05-28 04:30 → HO.S3 05-28 15:49 → HO.EDOVER 05-28 16:34 → HO.S3 05-29 11:14
PROVIDERS: Registered Nurse; Admitting Provider Internal Medicine; Emergency Provider Emergency Medicine; PCP Nurse Practitioner Family; Visit Provider Physician Assistant Medical
DX: J44.1 Chronic obstructive pulmonary disease with (acute) exacerbation (principal); J96.01 Acute respiratory failure with hypoxia; G92.8 Other toxic encephalopathy; F31.9 Bipolar disorder, unspecified; F41.1 Generalized anxiety disorder; F17.210 Nicotine dependence, cigarettes, uncomplicated; Z20.822 Contact with and (suspected) exposure to COVID-19; E11.8 Type 2 diabetes mellitus with unspecified complications; T42.4X5A Adverse effect of benzodiazepines, initial encounter; Y92.9 Unspecified place or not applicable; Z79.51 Long term (current) use of inhaled steroids; Z79.84 Long term (current) use of oral hypoglycemic drugs; Z79.899 Other long term (current) drug therapy
CPT/HCPCS: 36415; 36600; 70450; 71045; 71275; 80048; 80076; 80164; 80307; 81001; 81003; 82140; 82803; 82947; 83036; 83605; 83735; 83880; 84145; 84484; 85025; 85027; 85610; 87040; 87077; 87147; 87186; 87205; 87635; 93005; 94640; 94644; 94645; 96365; 96366; 96367; 96375; 99285; J0456; J0696; J1650; J2920; J2930; J3475; Q9967